=== PATIENT | female | born 1975 | race Caucasian/White ===

== ENCOUNTER 2020-01-24 20:26 | Emergency (ER) | payer SELFPAY ==
[~2020-01-24] VITALS: Ht 157 cm; Wt 117.9 kg
[~2020-01-24 20:26] MED LIST: PRD20T PO; PS30T PO
[2020-01-24] MEDS ORDERED: RX-ONDANSETRON 4 MG ODT (ZOFRAN) PPK #4 PO STA (21:21)
[2020-01-24] MEDS ORDERED: RX-MECLIZINE HCL (ANTIVERT) 25 MG TAB #4 PPK PO STA (21:21)
[2020-01-24] MEDS ORDERED: ONDA4TAB11 PO (21:25)
[2020-01-24] MEDS ORDERED: SCOP1PAT11 TD (21:25)
[2020-01-24] MEDS ORDERED: METH4TAB PO (21:25)
--- NOTE | 2020-01-24 21:26 | ED General ---
General Chief Complaint: Ear Problems Stated Complaint: L EAR PAIN/DIZZINESS Nursing Triage Note: Pt to RM 6 with c/o left ear pressure and dizziness that started today. Pt states she has a Hx of ear infections and these symptoms are similar with her past ear infections. Nursing Sepsis Screen: No Definite Risk Source of Information: Patient History of Present Illness Date Seen by Provider: Jan 24, 2020 Time Seen by Provider: 21:12 Initial Comments PT ARRIVES VIA POV FROM HOME STATES SHE HAS PAIN/PRESSURE IN HER LEFT EAR AND HAS BEEN DIZZY ALL DAY TODAY STATES SHE HAS HAD FEVER TODAY AND WAS UP TO 102.7 TONIGHT--HAS COME DOWN WITH TYLENOL--TOOK LAST DOSE PRIOR TO ARRIVAL + NAUSEA WITH THE DIZZINESS, NO VOMITING NO COUGH HAS BEEN HAVING PROBLEMS WITH "ALLERGIES" AND TAKES ZYRTEC. 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 BOTH START COLLEGE NEXT WEEK. ONE WORKS AT [employer] PT HAS BEEN AROUND HER FRIEND AND HER 4 MONTH OLD TWINS ALOT/HELPING TAKE CARE OF THEM--NONE OF THEM HAVE BEEN ILL LMP 2 WEEKS AGO. NORMAL. NO CONTROL PCP: [facility], CHERELLE KILPATRICK Allergies and Home Medications Allergies Coded Allergies: sulfamethoxazole (Verified Allergy, Unknown, 01/24/20) trimethoprim (Verified Allergy, Unknown, 01/24/20) Home Medications Methylprednisolone 4 Mg Tab.ds.pk, 4 MG PO UD PER DOSE PACK INSTRUCTIONS Prescribed by: NENA TAY on 01/24/202124 Ondansetron 4 Mg Tab.rapdis, 4 MG PO Q4H Prescribed by: NENA TAY on 01/24/202124 Prednisone 20 Mg Tab, 40 MG PO DAILY Prescribed by: ANT BYNUM on 06/23/131731 Pseudoephedrine Hcl 30 Mg Tab, 1 TAB PO TID Prescribed by: ANT BYNUM on 06/23/131731 Scopolamine 1 Each Patch.td72, 1 EACH TD Q72H Prescribed by: NENA TAY on 01/24/202124 Patient Home Medication List Home Medication List Reviewed: Yes Review of Systems Review of Systems Constitutional: see HPI, dizziness, fever, malaise EENTM: ear pain, nose congestion; No ear discharge, No hearing loss, No throat pain Respiratory: no symptoms reported; No cough, No short of breath, No wheezing Cardiovascular: no symptoms reported; No chest pain Gastrointestinal: see HPI; No abdominal pain, No diarrhea; nausea; No vomiting Genitourinary: no symptoms reported Musculoskeletal: no symptoms reported; No neck pain Skin: no symptoms reported Psychiatric/Neurological: No Symptoms Reported; Denies Headache, Denies Num bness, Denies Paresthesia, Denies Tingling, Denies Weakness Hematologic/Lymphatic: No Symptoms Reported Immunological/Allergic: no symptoms reported Past Wcptjbz-Nzmvfh-Fqlqvg Hx Past Med/Social Hx: Reviewed and Corrections made Patient Social History Alcohol Use: Denies Use Recreational Drug Use: No Smoking Status: Never a Smoker Recent Foreign Travel: No Contact w/Someone Who Travel: No Recent Infectious Disease Expo: No Recent Hopitalizations: No Seasonal Allergies Seasonal Allergies: Yes Past Medical History Surgeries: Yes ( X 2) Section, Gallbladder, Tonsillectomy Respiratory: No Cardiac: Yes Hypertension Neurological: No Reproductive Disorders: No Genitourinary: No Gastrointestinal: No Musculoskeletal: No Endocrine: Yes (NO MEDICATIONS FOR DIABETES) Diabetes, Non-Insulin dep HEENT: Yes (Hx ear infections) Tonsilitis Cancer: No Psychosocial: No Integumentary: No Blood Disorders: No Physical Exam Vital Signs Vital Signs - First Documented 01/24/20 20:46 Temp 36.7 Pulse 117 Resp 18 B/P (MAP) 142/92 (109) Pulse Ox 97 O2 Delivery Room Air Capillary Refill : Less Than 3 Seconds Height, Weight, BMI Height: '" Weight: 260lbs. oz. 117.270253qs; 47.00 BMI Method: General Appearance: No Apparent Distress, WD/WN, Obese HEENT: PERRL/EOMI, TMs Normal, Normal ENT Inspection, Pharynx Normal, Moist Mucous Membranes Neck: Full Range of Motion, Normal Inspection, Non Tender, Supple; No Carotid Bruit, No JVD Respiratory: Normal Breath Sounds, No Accessory Muscle Use, No Respiratory D istress Cardiovascular: No Edema, No JVD, No Murmur, Normal Peripheral Pulses, Tachycardia (120) Gastrointestinal: Non Tender, Soft Back: No CVA Tenderness Extremity: Normal Inspection Neurologic/Psychiatric: Alert, Oriented x3, No Motor/Sensory Deficits, Normal 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/Affect, 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 II-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 Norm as Tested; No Abnormal Cerebellar Tests, No Abnormal Gait Skin: Normal Color, Warm/Dry Progress/Results/Core Measures Suspected Sepsis Recent Fever Within 48 Hours: No Infection Criteria Present: None New/Unexplained Altered Menta: No Sepsis Screen: No Definite Risk SIRS Temperature: Pulse: 117 Respiratory Rate: 18 Blood Pressure 142 /92 Mean: 109 Results/Orders Lab Results Laboratory Tests Test 01/24/20 21:30 Range/Units My Orders Orders - NENA TAY DO Rx-Meclizine Hcl (Rx-Antivert) (01/24/20 21:21) Rx-Ondansetron Po (Rx-Zofran Po) (01/24/20 21:21) Coronavirus Sars-Cov-2 So 2018 (01/24/20 21:21) Scopolamine Patch (Transderm-Scop Patch) (01/24/20 21:30) Medications Given in ED Current Medications Medications Dose Ordered Sig/Shakira Route Start Time Stop Time Status Last Admin Dose Admin Scopolamine 1.5 mg ONCE ONCE TD 01/24/20 21:30 01/24/20 21:31 DC 01/24/20 21:44 1.5 MG Vital Signs/I&O 01/24/20 01/24/20 20:46 21:44 Temp 36.7 38.1 Pulse 117 115 Resp 18 18 B/P (MAP) 142/92 (109) 153/99 (109) Pulse Ox 97 97 O2 Delivery Room Air Room Air Capillary Refill : Less Than 3 Seconds Blood Pressure Mean: 109 Progress Note : Progress Note SOON PT REPORTED TO ME THAT SHE HAD BEEN HAVING FEVER UP TO 102.7 TODAY, PPE WAS IMMEDIATELY DONNED, AND COVID-19 TESTING WAS PERFORMED. PT ADVISED OF NEED FOR QUARANTINE FOR HERSELF AND ALL HOUSEHOLD MEMBERS AND ANY CLOSE CONTACTS, INCLUDING HER FRIEND AND TWIN [employer]S Departure Impression Primary Impression: COVID P.U.I. Additional Impressions: Left ear pain Dizziness Disposition: 01 HOME, SELF-CARE Condition: Stable Departure-Patient Inst. [facility] Primary Care Physician Patient Instructions: Coronavirus Disease 2019 (COVID-19) (DC), Dizziness, Nonvertigo, (DC), Vertigo (a Type of Dizziness) (DC) Add. Discharge Instructions: TYLENOL AND MOTRIN NEEDED FOR PAIN OR FEVER LOTS OF CLEAR LIQUIDS CONTINUE YOUR ALLERGY MEDICATION SLOW POSITION CHANGES LEAVE SCOPOLAMINE PATCH IN PLACE FOR 72 HOURS FOLLOW UP WITH YOUR DR IN 3-4 DAYS IF NO BETTER, RETURN TO ER IF WORSE QUARANTINE YOURSELF AND ALL HOUSEHOLD MEMBERS FOR THE NEXT 2 WEEKS--NO ONE ENTERS OR LEAVES YOUR HOME FOR THE NEXT 2 WEEKS All discharge instructions reviewed with patient and/or family. Voiced understanding. Scripts Ondansetron (Ondansetron Odt) 4 Mg Tab.rapdis 4 MG PO Q4H for Nausea/Vomiting, #10 TAB Prov: NENA TAY DO 01/24/20 Methylprednisolone (Medrol) 4 Mg Tab.ds.pk 4 MG PO UD for 6 Days, #21 PKG PER DOSE PACK INSTRUCTIONS Prov: NENA TAY DO 01/24/20 Scopolamine (Transderm-Scop) 1 Each Patch.td72 1 EACH TD Q72H, #3 PATCH Prov: ENNA TAY DO 01/24/20 Work/School Note: Work Release Form Date Seen in the Emergency Department: Jan 24, 2020 Return to Work: Feb 07, 2020 NENA TAY DO Jan 24, 2020 21:25
[2020-01-24] MEDS ORDERED: SCOPOLAMINE 1.5 MG (TRANSDERM-SCOP) PATCH TD ONE (21:30)
[2020-01-24 21:44] VITALS: BP 153/99
--- OUTSIDE RECORDS SUMMARY | 2020-01-25 00:03 | XMS REPORT ---
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 Name Role Phone [employer] Unavailable PROBLEMS Type Condition ICD9-CM Code PXM60-AT Code Onset Dates Condition S tatus SNOMED Code Problem Controlled type 2 diabetes m ellitus without complication, without long- term current use of insulin E11.9 Active 875409962 Problem Hypertension, benign I10 Active 39170113 ALLERGIES No Information ENCOUNTERS Encounter Location Date Diagnosis [facility] [address] [phone] October, [facility] [address] [place] [id number] [address] [place] [phone] Sep, [facility] [address] [place] [address] [id number] [address] [place] [address] Sep, Hypertension, benign I10 and Controlled type 2 diabetes mellitus without complication, without long-term current use of insulin E11.9 [facility] [address] [facility] [id number] [address] [place] [phone] 09 Sep, [address] [facility] [address] [facility] [id number] [address] [place] [phone] Feb, Flank pain R10.9 [facility] [address] [facility] [id number] [address] [place] [phone] May, [facility] [address] [facility] [id number] [address] [place] [phone] May, Controlled type 2 diabetes m priscila without complication, without long-term current use of insulin E11.9 [facility] [address] [facility] [id number] [address] [place] [phone] Apr, Controlled type 2 diabetes m ellitus without complication, without long-term current use of insulin E11.9 and Hypertension, benign I10 [facility] [address] [place] [id number] [place] [phone] Mar, Controlled type 2 diabetes m ellitus without complication, without long-term current use of insulin E11.9 and Acute pain of right knee M25.561 [facility] [address] [facility] [id number] [address] [place] [phone] Mar, [facility] [address] [id number] [address] [place] [phone] Feb, Controlled type 2 diabetes m ellitus without complication, without long-term current use of insulin E11.9 [place] [address] [place] [id number] [place] [address] Dec, Controlled type 2 diabetes m ellitus without complication, without long-term current use of insulin E11.9 and Hypertension, benign I10 [facility] [address] [facility] [id number] [address] [place] [phone] October, Controlled type 2 diabetes m ellitus without complication, without long-term current use of insulin E11.9 and Hypertension, benign I10 [facility] [address] [place] [id number] [address] [place] [phone] Sep, [facility] [id number] [place] [phone] Jul, Dental examination Z01.20 [facility] [address] [place] [id number] [address] [place] [phone] Jun, [facility] [address] [facility] [id number] [address] [place] [phone] May, Encounter for immunization Z 23 [facility] [id number] [place] [phone] Apr, [facility] [address] [id number] Jan, Dental examination Z01.20 [facility] [address] [id number] [address] [place] [id number] Jan, Dental examination Z01.20 [facility] [address] [facility] [id number] [address] [place] [phone] Aug, Controlled type 2 diabetes m priscila without complication, without long-term current use of insulin E11.9 [facility] [address] [facility] [id number] [address] [place] [phone] Feb, Uncontrolled diabetes [facility] type 2 without complications, unspecified residential insulin use status E11.65 [facility] [address] [facility] [id number] [address] [place] [phone] Feb, [facility] [address] [facility] [id number] [address] [place] [phone] Jan, [facility] [address] [place] [id number] [address] [place] [phone] Nov, Controlled type 2 diabetes m priscila without complication, without long-term current use of insulin E11.9 [facility] [address] [facility] [id number] [address] [place] [phone] October, Uncontrolled diabetes [facility] type 2 without complications, unspecified residential insulin use status E11.65 [facility] [address] [facility] [id number] [address] [place] [phone] October, Vision changes H53.9 ; Hyper tension, benign I10 ; Polyuria R35.8 and Polydipsia R63.1 [facility] [address] [facility] [id number] [address] [place] [phone] October, Vision changes H53.9 ; Dizzi ness R42 ; Polyuria R35.8 ; Polydipsia R63.1 and Hypertension, benign I10 [facility] [address] [facility] [id number] [address] [place] [phone] Sep, Rhinitis, allergic J30.9 ; O ME (otitis media with effusion), bilateral H65.93 ; Bilateral headaches R51 and Dizziness R42 [facility] [place] [facility] [address] [id number] [address] [place] [address], [place] [address] 31 May, 2015 Encounter for immunization Z 23 [facility] [address] [id number] [address] [place] [address], [place] [address] 14 Sep, 2014 [facility] [address] [id number] [address] [place] [address], [place] [address] Sep, [facility] [address] [id number] [address] [place] [address], [place] [address] Sep, [facility] [address] [id number] [address] [place] [address], [place] [address] Sep, [facility] [address] [id number] [address] [place] [address], [place] [address] Sep, [facility] [address] [id number] [address] [place] [address], [place] [address] Sep, [facility] [address] [id number] [address] [place] [address], [place] [address] Sep, [facility] [address] [id number] [address] [place] [address], [place] [address] Aug, [facility] [address] [id number] [address] [place] [address], [place] [address] Aug, [facility] [address] [id number] [address] [place] [address], [place] [address] Jan, [facility] [address] [id number] [address] [place] [address], [place] [address] Aug, [facility] [address] [id number] [address] [place] [address], [place] [address] Mar, [facility] [address] [id number] [address] [place] [address], [place] [address] Mar, [facility] [address] [id number] [address] [place] [address], [place] [address] Mar, [facility] [address] [id number] [address] [place] [phone] Feb, [facility] [address] [facility] [id number] [address] [place] [phone] Feb, IMMUNIZATIONS No Known Immunizations SOCIAL HISTORY Never Assessed REASON FOR VISIT PLAN OF CARE VITAL SIGNS Height 63 in 2013 Weight 265.5 lbs 2013 Temperature 101.4 degrees Fahrenheit 2013 Heart Rate 94 bpm 2013 Respiratory Rate 20 2013 Blood pressure systolic 140 mmHg 2013 Blood pressure diastolic 92 mmHg 2013 MEDICATIONS Unknown Medications RESULTS No Results PROCEDURES Procedure Date Ordered Result Body Site STREP A ASSAY W/OPTIC 2013 INSTRUCTIONS MEDICATIONS ADMINISTERED No Known Medications MEDICAL (GENERAL) HISTORY Type Description Date Medical History seasonal allergies Medical History Transient cerebral ischemia, unspecified type Surgical History cholecystectomy Surgical History tonsillectomy Surgical History x 2 Hospitalization History surgeries Hospitalization History menangitis in middle school Hospitalization History arm injury at 1 Hospitalization History scarlet fever as a child
--- OUTSIDE RECORDS SUMMARY | 2020-01-25 00:03 | XMS REPORT ---
Author Author Ene KILPATRICK Organization [facility] Address [address] [place] [address] Care Team Providers Care Slot Machine Key Person Name Role Phone BOSTON KILPATRICK Unavailable PROBLEMS Type Condition ICD9-CM Code GHE59-KT Code Onset Dates Condition S tatus SNOMED Code Problem Hypertension, benign I10 Active 71028084 Problem Controlled type 2 diabetes m ellitus without complication, without long- term current use of insulin E11.9 Active 231468937 ALLERGIES No Information ENCOUNTERS Encounter Location Date Diagnosis [place] [address] [place] [address] [id number] [place] [phone] Apr, [place] [address] [place] [id number] [address] [place] [address] Mar, Controlled type 2 diabetes m ellitus without complication, without long-term current use of insulin E11.9 and Acute pain of right knee M25.561 [place] [address] [place] [id number] [address] [place] [phone] Mar, [place] [address] [place] [id number] [address] [place] [address] Feb, Controlled type 2 diabetes m ellitus without complication, without long-term current use of insulin E11.9 [place] [address] [facility] [id number] [address] [place] [phone] Dec, Controlled type 2 diabetes m ellitus without complication, without long-term current use of insulin E11.9 and Hypertension, benign I10 [place] [address] [facility] [id number] [address] [place] [phone] October, Controlled type 2 diabetes m ellitus without complication, without long-term current use of insulin E11.9 and Hypertension, benign I10 [place] [address] [facility] [id number] [address] [place] [address] Sep, [facility] [address] [id number] [address] [place] [id number] Jul, Dental examination Z01.20 [facility] [address] [id number] [address] [place] [phone] Jun, [facility] [address] [id number] [address] [place] [phone] May, Encounter for immunization Z 23 [facility] [address] [id number] [address] [place] [id number] Apr, [facility] [address] [id number] [address] [place] [address] [id number] Jan, Dental examination Z01.20 [facility] [address] [id number] [address] [place] [phone] Jan, Dental examination Z01.20 [facility] [address] [id number] [address] [place] [phone] Aug, Controlled type 2 diabetes m ellitus without complication, without long-term current use of insulin E11.9 [facility] [address] [id number] [address] [place] [address] Feb, Uncontrolled diabetes [facility] type 2 without complications, unspecified group home insulin use status E11.65 [facility] [address] [facility] [id number] [address] [place] [phone] Feb, [facility] [address] [id number] [address] [place] [address] Jan, [facility] [address] [id number] [address] [place] [phone] Nov, Controlled type 2 diabetes m ellitus without complication, without long-term current use of insulin E11.9 [facility] [address] [id number] [address] [place] [address] October, Uncontrolled diabetes [facility] type 2 without complications, unspecified group home insulin use status E11.65 [facility] [address] [facility] [id number] [address] [place] [phone] October, Vision changes H53.9 ; Hyper tension, benign I10 ; Polyuria R35.8 and Polydipsia R63.1 [facility] [address] [facility] [id number] [address] [place] [address] October, Vision changes H53.9 ; Dizzi ness R42 ; Polyuria R35.8 ; Polydipsia R63.1 and Hypertension, benign I10 [facility] [address] [facility] [id number] [address] [place] [address] Sep, Rhinitis, allergic J30.9 ; O ME (otitis media with effusion), bilateral H65.93 ; Bilateral headaches R51 and Dizziness R42 [facility] [address] [place] [id number] [address] [place] [phone] May, Encounter for immunization Z 23 [facility] [address] [phone] Sep, [facility] [address] [phone] Sep, [facility] [address] [place] [address] [id number] [address] [place] [phone] Sep, [facility] [address] [place] [id number] [address] [place] [phone] Sep, [facility] [address] [place] [id number] [address] [place] [phone] Sep, [facility] [address] [place] [id number] [address] [place] [phone] Sep, [facility] [address] [place] [id number] [address] [place] [phone] Sep, [facility] [address] [place] [address] [id number] [address] [place] [phone] Aug, [facility] [address] [place] [id number] [place] [address] 28 Aug, 2013 [facility] [address] [id number] [address] [place] [phone] Jan, [facility] [address] [id number] [address] [place] [phone] Aug, [facility] [address] [id number] [address] [place] [phone] Mar, [facility] [address] [id number] [address] [place] [phone] Mar, [facility] [address] [id number] [address] [place] [phone] Mar, [facility] [address] [id number] [address] [place] [phone] Feb, [facility] [address] [facility] [id number] [address] [place] [phone] Feb, IMMUNIZATIONS No Known Immunizations SOCIAL HISTORY Never Assessed REASON FOR VISIT Medication refill request PLAN OF CARE VITAL SIGNS MEDICATIONS Medication Instructions Dosage Frequency Start Date End Date Duration S tatus Lisinopril 20 mg TAKE ONE TABLET BY MOUTH ONCE DAILY 90 Active RESULTS No Results PROCEDURES No Known procedures INSTRUCTIONS MEDICATIONS ADMINISTERED No Known Medications MEDICAL (GENERAL) HISTORY Type Description Date Medical History seasonal allergies Medical History Transient cerebral ischemia, unspecified type Surgical History cholecystectomy Surgical History tonsillectomy Surgical History x 2 Hospitalization History surgeries Hospitalization History menangitis in middle school Hospitalization History arm injury at 1 Hospitalization History scarlet fever as a child
--- OUTSIDE RECORDS SUMMARY | 2020-01-25 00:03 | XMS REPORT ---
Author Author Ene KILPATRICK Organization [facility] Address [address] [place] [address] Care Team Providers Care Cloth Colors Examiner Name Role Phone BOSTON KILPATRICK Unavailable PROBLEMS Type Condition ICD9-CM Code RSZ33-ST Code Onset Dates Condition S tatus SNOMED Code Problem Hypertension, benign I10 Active 19950339 Problem Controlled type 2 diabetes m ellitus without complication, without long- term current use of insulin E11.9 Active [id number] ALLERGIES Substance Reaction Event Type Date Status Sulfamethoxazole-Trimethoprim Unknown Drug Allergy Feb, 8 Active Amoxicillin hives Drug Allergy Feb, Active Codeine Unknown Drug Allergy Feb, Active Bactrim anaphylaxis Non Drug Allergy Feb, Active Pineapple and Eggplant Unknown Non Drug Allergy Feb, A ctive Blue 1 dye swelling tongue and face Non Drug Allergy Feb, Active ENCOUNTERS Encounter Location Date Diagnosis [place] [address] [address] Mar, [place] [address] [address] Feb, Controlled type 2 diabetes m ellitus without complication, without long-term current use of insulin E11.9 [place] [address] [place] [id number] [address] [place] [phone] Dec, Controlled type 2 diabetes m ellitus without complication, without long-term current use of insulin E11.9 and Hypertension, benign I10 [place] [address] [place] [id number] [address] [place] [phone] October, Controlled type 2 diabetes m ellitus without complication, without long-term current use of insulin E11.9 and Hypertension, benign I10 [place] [address] [place] [id number] [address] [place] [address] Sep, [facility] [address] [id number] [address] [place] [phone] Jul, Dental examination Z01.20 [facility] [address] [id number] [address] [place] [phone] Jun, [facility] [address] [id number] [address] [place] [phone] May, Encounter for immunization Z 23 [facility] [address] [id number] [address] [place] [address] [phone] Apr, [facility] [address] [id number] [address] [place] [address] [phone] Jan, Dental examination Z01.20 [facility] [address] [id number] [address] [place] [address] [id number] Jan, Dental examination Z01.20 [facility] [address] [id number] [address] [place] [phone] Aug, Controlled type 2 diabetes m ellitus without complication, without long-term current use of insulin E11.9 [facility] [address] [id number] [address] [place] [phone] Feb, Uncontrolled diabetes mellit type 2 without complications, 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 [facility] [address] [id number] [address] [place] [phone] Feb, [facility] [address] [id number] [address] [place] [phone] Jan, [facility] [address] [id number] [address] [place] [phone] Nov, Controlled type 2 diabetes m ellitus without complication, without long-term current use of insulin E11.9 [facility] [address] [id number] [address] [place] [phone] October, Uncontrolled diabetes mellit [place] type 2 without complications, unspecified alf insulin use status E11.65 [facility] [address] [address] October, Vision changes H53.9 ; Hyper tension, benign I10 ; Polyuria R35.8 and Polydipsia R63.1 [facility] [address] [address] October, Vision changes H53.9 ; Dizzi ness R42 ; Polyuria R35.8 ; Polydipsia R63.1 and Hypertension, benign I10 [facility] [address] [address] Sep, Rhinitis, allergic J30.9 ; O ME (otitis media with effusion), bilateral H65.93 ; Bilateral headaches R51 and Dizziness R42 [facility] [address] [address] May, Encounter for immunization Z 23 [facility] [address] [phone] 14 Sep, 2014 [facility] [address] [address] Sep, [facility] [address] [id number] Sep, [facility] [address] [address] Sep, [facility] [address] [address] Sep, [facility] [address] [address] Sep, [facility] [address] [address] Sep, [facility] [address] [address] Aug, [facility] [address] [address] Aug, [facility] [address] [id number] [address] [place] [phone] Jan, [facility] [address] [id number] [address] [place] [phone] Aug, [facility] [address] [id number] [address] [place] [phone] Mar, [facility] [address] [id number] [address] [place] [phone] Mar, [facility] [address] [id number] [address] [place] [phone] Mar, [facility] [address] [id number] [address] [place] [phone] Feb, [facility] [address] [id number] [address] [place] [phone] Feb, IMMUNIZATIONS No Known Immunizations SOCIAL HISTORY Never Assessed REASON FOR VISIT Diabetes follow up. ALEX Lim PLAN OF CARE Activity Details Follow Up 4 Weeks Reason:dm2 uncontrol led. VITAL SIGNS Height 63 in 2018-02-27 Weight 260 lbs 2018-02-27 Temperature 98.1 degrees Fahrenheit 2018-02-27 Heart Rate 71 bpm 2018-02-27 Respiratory Rate 18 2018-02-27 BMI 46.05 kg/m2 2018-02-27 Blood pressure systolic 124 mmHg 2018-02-27 Blood pressure diastolic 78 mmHg 2018-02-27 MEDICATIONS Medication Instructions Dosage Frequency Start Date End Date Duration S tatus cetirizine 10 mg take 1 tablet (10 mg) by oral route o nce daily Jan, Active Lisinopril 20 MG TAKE ONE TABLET BY MOUTH ONCE DAILY 90 Active Chlorzoxazone 500 MG TAKE ONE TABLET BY MOUTH TWICE DAILY Dec, 30 Active Naproxen 500 MG Orally every 12 hrs 1 tablet as needed 12h 30 Active Parafon Forte DSC Active RESULTS Name Result Date Reference Range A1C (IN HOUSE) 2018-02-27 A1C IN HOUSE 6.5 4.3 - 5.6 % Previous A1c 6.2 Lot [id number] Exp date 08/2019 PROCEDURES Procedure Date Ordered Result Body Site GLYCATED HEMOGLOBIN TEST Feb 27, 2018 INSTRUCTIONS MEDICATIONS ADMINISTERED No Known Medications MEDICAL (GENERAL) HISTORY Type Description Date Medical History seasonal allergies Medical History Transient cerebral ischemia, unspecified type Surgical History cholecystectomy Surgical History tonsillectomy Surgical History x 2 Hospitalization History surgeries Hospitalization History menangitis in middle school Hospitalization History arm injury at 1 Hospitalization History scarlet fever as a child
--- OUTSIDE RECORDS SUMMARY | 2020-01-25 00:03 | XMS REPORT ---
Author Author Ene Caldera Doctor Organization [facility] Address Unknown Phone Unavailable Care Team Providers Care Shoe Turner Name Role Phone Migration, Doctor Unavailable Unavailable PROBLEMS Type Condition ICD9-CM Code AWK70-JE Code Onset Dates Condition S tatus SNOMED Code Problem Controlled type 2 diabetes m ellitus without complication, without long- term current use of insulin E11.9 Active 538804951 Problem Hypertension, benign I10 Active 15763409 ALLERGIES No Information ENCOUNTERS Encounter Location Date Diagnosis [place] [address] [place] [id number] [address] [place] [phone] May, [place] [address] [place] [id number] [address] [place] [phone] May, Controlled type 2 diabetes m ellitus without complication, without long-term current use of insulin E11.9 [place] [address] [place] [id number] [address] [place] [phone] Apr, Controlled type 2 diabetes m ellitus without complication, without long-term current use of insulin E11.9 and Hypertension, benign I10 [place] [address] [address] [facility] [id number] [address] [place] [address] Mar, Controlled type 2 diabetes m ellitus without complication, without long-term current use of insulin E11.9 and Acute pain of right knee M25.561 [place] [address] [address] [facility] [id number] [address] [place] [phone] Mar, [place] [address] [address] [place] [id number] [address] [place] [address] Feb, Controlled type 2 diabetes m ellitus without complication, without long-term current use of insulin E11.9 [place] [address] [address] [facility] [id number] [address] [place] [phone] Dec, Controlled type 2 diabetes m ellitus without complication, without long-term current use of insulin E11.9 and Hypertension, benign I10 [facility] [address] [id number] [address] [place] [phone] October, Controlled type 2 diabetes m stephanieitus without complication, without long-term current use of insulin E11.9 and Hypertension, benign I10 [facility] [address] [id number] [address] [place] [address] Sep, [facility] [address] [id number] [address] [place] [address] [phone] Jul, Dental examination Z01.20 [facility] [address] [id number] [address] [place] [phone] Jun, [facility] [address] [id number] [address] [place] [phone] May, Encounter for immunization Z 23 [facility] [address] [id number] [address] [place] [address] [id number] Apr, [facility] [address] [id number] [address] [place] [address] [phone] Jan, Dental examination Z01.20 [facility] [address] [id number] [address] [place] [address] [phone] Jan, Dental examination Z01.20 [facility] [address] [id number] [address] [place] [phone] Aug, Controlled type 2 diabetes m pricsila without complication, without long-term current use of insulin E11.9 [facility] [address] [id number] [address] [place] [phone] Feb, Uncontrolled diabetes [facility] type 2 without complications, 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 [facility] [address] [id number] [address] [place] [address] Feb, [facility] [address] [id number] [address] [place] [phone] Jan, [facility] [address] [address] Nov, Controlled type 2 diabetes melva francois without complication, without long-term current use of insulin E11.9 [facility] [address] [address] October, Uncontrolled diabetes mellit type 2 without complications, unspecified correction insulin use status E11.65 [place] [address] [address] October, Vision changes H53.9 ; Hyper tension, benign I10 ; Polyuria R35.8 and Polydipsia R63.1 [place] [address] [address] October, Vision changes H53.9 ; Dizzi ness R42 ; Polyuria R35.8 ; Polydipsia R63.1 and Hypertension, benign I10 [facility] [address] [address] Sep, Rhinitis, allergic J30.9 ; O ME (otitis media with effusion), bilateral H65.93 ; Bilateral headaches R51 and Dizziness R42 [place] [address] [address] May, Encounter for immunization Z 23 [place] [address] [address] 14 Sep, 2014 [place] [address] [address] Sep, [facility] [address] [address] Sep, [facility] [address] [address] Sep, [facility] [address] [address] Sep, [place] [address] [address] Sep, [facility] [address] [id number] [address] [place] [phone] Sep, [facility] [address] [id number] [address] [place] [phone] Aug, [facility] [address] [id number] [address] [place] [phone] Aug, [facility] [address] [id number] [address] [place] [phone] Jan, [facility] [address] [id number] [address] [place] [phone] Aug, [facility] [address] [id number] [address] [place] [phone] Mar, [facility] [address] [id number] [address] [place] [phone] Mar, [facility] [address] [id number] [address] [place] [phone] Mar, [facility] [address] [id number] [address] [place] [phone] Feb, [facility] [address] [id number] [address] [place] [phone] Feb, IMMUNIZATIONS No Known Immunizations SOCIAL HISTORY Never Assessed REASON FOR VISIT [facility] PLAN OF CARE VITAL SIGNS MEDICATIONS Unknown Medications RESULTS No Results PROCEDURES No Known procedures [...]
--- OUTSIDE RECORDS SUMMARY | 2020-01-25 00:03 | XMS REPORT ---
Author Author Ene KILPATRICK Organization [facility] Address [address] [place] [address] Care Team Providers Care Coronary Clinical Specialist Name Role Phone BOSTON KILPATRICK Unavailable PROBLEMS Type Condition ICD9-CM Code PWW60-AE Code Onset Dates Condition S tatus SNOMED Code Problem Hypertension, benign I10 Active 86168511 Problem Controlled type 2 diabetes m ellitus without complication, without long- term current use of insulin E11.9 Active 868359034 ALLERGIES No Information ENCOUNTERS Encounter Location Date Diagnosis [place] [address] [address] May, [place] [address] [place] [id number] [address] [place] [phone] May, Controlled type 2 diabetes m ellitus without complication, without long-term current use of insulin E11.9 [place] [address] [place] [id number] [address] [place] [phone] Apr, Controlled type 2 diabetes m ellitus without complication, without long-term current use of insulin E11.9 and Hypertension, benign I10 [place] [address] [place] [id number] [address] [place] [phone] Mar, Controlled type 2 diabetes m ellitus without complication, without long-term current use of insulin E11.9 and Acute pain of right knee M25.561 [place] [address] [place] [id number] [address] [place] [phone] Mar, [place] [address] [address] [place] [id number] [address] [place] [phone] Feb, Controlled type 2 diabetes m ellitus without complication, without long-term current use of insulin E11.9 [place] [address] [place] [id number] [address] [place] [phone] Dec, Controlled type 2 diabetes m ellitus without complication, without long-term current use of insulin E11.9 and Hypertension, benign I10 [facility] [address] [id number] [address] [place] [phone] October, Controlled type 2 diabetes m ellitus without complication, without long-term current use of insulin E11.9 and Hypertension, benign I10 [facility] [address] [id number] [address] [place] [phone] Sep, [facility] [address] [id number] [address] [place] [address] [id number] Jul, Dental examination Z01.20 [facility] [address] [id number] [address] [place] [phone] Jun, [facility] [address] [id number] [address] [place] [phone] May, Encounter for immunization Z 23 [facility] [address] [id number] [address] [place] [address] [id number] Apr, [facility] [id number] [place] [address] [phone] Jan, Dental examination Z01.20 [facility] [address] [id number] [address] [place] [address] [id number] Jan, Dental examination Z01.20 [facility] [address] [id number] [address] [place] [phone] Aug, Controlled type 2 diabetes m ellitus without complication, without long-term current use of insulin E11.9 [facility] [address] [id number] [address] [place] [phone] 16 Feb, 2016 Uncontrolled diabetes [facility] type 2 without complications, unspecified longterm insulin use status E11.65 [facility] [address] [id number] [address] [place] [phone] Feb, [facility] [address] [facility] [id number] [address] [place] [phone] Jan, [facility] [address] [address] Nov, Controlled type 2 diabetes melva francois without complication, without long-term current use of insulin E11.9 [facility] [address] [address] October, Uncontrolled diabetes mellit type 2 without complications, 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 [place] [id number] [address] October, Vision changes H53.9 ; Hyper tension, benign I10 ; Polyuria R35.8 and Polydipsia R63.1 [place] [address] [address] October, Vision changes H53.9 ; Dizzi ness R42 ; Polyuria R35.8 ; Polydipsia R63.1 and Hypertension, benign I10 [facility] [address] [address] Sep, Rhinitis, allergic J30.9 ; O ME (otitis media with effusion), bilateral H65.93 ; Bilateral headaches R51 and Dizziness R42 [place] [address] [address] May, Encounter for immunization Z 23 [place] [address] [address] Sep, [place] [address] [address] Sep, [place] [address] [address] Sep, [facility] [address] [address] Sep, [place] [address] [address] Sep, [facility] [address] [id number] [address] [place] [phone] Sep, [facility] [address] [id number] [address] [place] [phone] Sep, [facility] [address] [id number] [address] [place] [phone] Aug, [facility] [address] [id number] [address] [place] [phone] Aug, [facility] [address] [id number] [address] [place] [phone] Jan, [facility] [address] [id number] [address] [place] [phone] Aug, [facility] [address] [id number] [address] [place] [phone] Mar, [facility] [address] [id number] [address] [place] [phone] Mar, [facility] [address] [id number] [address] [place] [phone] Mar, [facility] [address] [id number] [address] [place] [phone] Feb, [facility] [address] [id number] [address] [place] [phone] Feb, IMMUNIZATIONS No Known Immunizations SOCIAL HISTORY Never Assessed REASON FOR VISIT refill request PLAN OF CARE VITAL SIGNS MEDICATIONS Medication Instructions Dosage Frequency Start Date End Date Duration S tatus Accu-Chek SmartView - test blood sugar 24h May, 50 days Active RESULTS No Results PROCEDURES No Known [...]
--- OUTSIDE RECORDS SUMMARY | 2020-01-25 00:03 | XMS REPORT ---
Author Author Ene Caldera Doctor Organization [facility] Address Unknown Phone Unavailable Care Team Providers Care Senior Radiation Therapist Name Role Phone Migration, Doctor Unavailable Unavailable PROBLEMS Type Condition ICD9-CM Code WCS10-PY Code Onset Dates Condition S tatus SNOMED Code Problem Controlled type 2 diabetes m ellitus without complication, without long- term current use of insulin E11.9 Active 802362048 Problem Hypertension, benign I10 Active 35442366 ALLERGIES No Information ENCOUNTERS Encounter Location Date Diagnosis [facility] [address] [facility] [id number] [address] [place] [address] Feb, Flank pain R10.9 [place] [address] [address] May, [place] [address] [address] May, Controlled type 2 diabetes mellitus with out complication, without long-term current use of insulin E11.9 [place] [address] [address] Apr, Controlled type 2 diabetes mellitus with out complication, without long-term current use of insulin E11.9 and Hypertension, benign I10 [facility] [address] [address] Mar, Controlled type 2 diabetes mellitus with out complication, without long-term current use of insulin E11.9 and Acute pain of right knee M25.561 [place] [address] [address] Mar, [place] [address] [address] Feb, Controlled type 2 diabetes mellitus with out complication, without long-term current use of insulin E11.9 [place] [address] [address] Dec, Controlled type 2 diabetes mellitus with out complication, without long-term current use of insulin E11.9 and Hypertension, benign I10 [place] [address] [address] October, Controlled type 2 diabetes mellitus with out complication, without long-term current use of insulin E11.9 and Hypertension, benign I10 [place] [address] [address] Sep, [facility] [address] [id number] Jul, Dental examination Z01.20 [place] [address] [address] Jun, [place] [address] [address] May, Encounter for immunization Z23 [facility] [address] [id number] Apr, [facility] [address] [id number] Jan, Dental examination Z01.20 [facility] [address] [id number] Jan, Dental examination Z01.20 [place] [address] [address] Aug, Controlled type 2 diabetes mellitus with out complication, without long-term current use of insulin E11.9 [place] [address] [address] Feb, Uncontrolled diabetes mellitus type 2 wi thout complications, unspecified alf insulin use status E11.65 [place] [address] [address] Feb, [place] [address] [address] Jan, [place] [address] [address] Nov, Controlled type 2 diabetes mellitus with out complication, without long-term current use of insulin E11.9 [facility] [address] [address] October, Uncontrolled diabetes mellitus type 2 wi thout complications, 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 [place] [address] [address] October, Vision changes H53.9 ; Hypertension, gato ign I10 ; Polyuria R35.8 and Polydipsia R63.1 [facility] [address] [address] October, Vision changes H53.9 ; Dizziness R42 ; P olyuria R35.8 ; Polydipsia R63.1 and Hypertension, benign I10 [facility] [address] [facility] [id number] [address] [place] [address] Sep, Rhinitis, allergic J30.9 ; O ME (otitis media with effusion), bilateral H65.93 ; Bilateral headaches R51 and Dizziness R42 [place] [address] [address] May, Encounter for immunization Z23 [place] [address] [address] Sep, [place] [address] [address] Sep, [facility] [address] [address] Sep, [facility] [address] [address] Sep, [place] [address] [address] Sep, [place] [address] [address] Sep, [place] [address] [address] Sep, [facility] [address] [id number] [place] [address] Aug, [facility] [address] [id number] [place] [address] Aug, [facility] [address] [id number] [place] [address] Jan, [facility] [address] [place] [id number] [place] [address] Aug, [facility] [address] [id number] [place] [address] Mar, [facility] [address] [place] [id number] [place] [address] Mar, [facility] [address] [id number] [place] [address] Mar, [facility] [address] [id number] [place] [address] Feb, [facility] [address] [id number] [place] [address] Feb, IMMUNIZATIONS No Known Immunizations SOCIAL HISTORY Never Assessed REASON FOR VISIT PLAN OF CARE VITAL SIGNS Height 63 in 2013-09-17 Weight 275.6 lbs 2013-09-17 Temperature 102 degrees Fahrenheit 2013-09-17 Heart Rate 102 bpm 2013-09-17 Respiratory Rate 24 2013-09-17 Blood pressure systolic 142 mmHg 2013-09-17 Blood pressure diastolic 88 mmHg 2013-09-17 MEDICATIONS No Known Medications RESULTS No Results PROCEDURES No Known [...]
--- OUTSIDE RECORDS SUMMARY | 2020-01-25 00:03 | XMS REPORT ---
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 Name Role Phone Migration, Doctor Unavailable Unavailable PROBLEMS Type Condition ICD9-CM Code XRT06-JR Code Onset Dates Condition S tatus SNOMED Code Problem Controlled type 2 diabetes m ellitus without complication, without long- term current use of insulin E11.9 Active 069006971 Problem Hypertension, benign I10 Active 62840081 ALLERGIES Substance Reaction Event Type Date Status Bactrim Unknown Drug Allergy Sep, Active Codeine Unknown Drug Allergy Sep, Active ENCOUNTERS Encounter Location Date Diagnosis [place] [address] [place] [id number] [place] [address] May, [place] [address] [address] [place] [id number] [place] [address] May, Controlled type 2 diabetes m ellitus without complication, without long-term current use of insulin E11.9 [place] [address] [place] [id number] [place] [address] Apr, Controlled type 2 diabetes m ellitus without complication, without long-term current use of insulin E11.9 and Hypertension, benign I10 [place] [address] [place] [address] Mar, Controlled type 2 diabetes m ellitus without complication, without long-term current use of insulin E11.9 and Acute pain of right knee M25.561 [place] [address] [place] [id number] [place] [address] Mar, [place] [address] [address] [place] [id number] [address] [place] [address] Feb, Controlled type 2 diabetes m ellitus without complication, without long-term current use of insulin E11.9 [place] [address] [place] [id number] [address] [place] [address] Dec, Controlled type 2 diabetes m ellitus without complication, without long-term current use of insulin E11.9 and Hypertension, benign I10 [facility] [address] [id number] [address] [place] [address] October, Controlled type 2 diabetes m ellitus without complication, without long-term current use of insulin E11.9 and Hypertension, benign I10 [facility] [address] [id number] [address] [place] [address] Sep, [facility] [id number] [place] [id number] Jul, Dental examination Z01.20 [facility] [address] [place] [id number] [address] [place] [address] Jun, [facility] [address] [id number] [address] [place] [address] May, Encounter for immunization Z 23 [facility] [address] [id number] [place] [id number] Apr, [facility] [address] [place] [id number] [place] [id number] Jan, Dental examination Z01.20 [facility] [address] [facility] [id number] [place] [id number] Jan, Dental examination Z01.20 [facility] [address] [id number] [address] [place] [address] Aug, Controlled type 2 diabetes m stephanieitus without complication, without long-term current use of insulin E11.9 [facility] [address] [id number] [address] [place] [address] 16 Feb, 2016 Uncontrolled diabetes [facility] type 2 without complications, unspecified mcfp insulin use status E11.65 [facility] [address] [id number] [address] [place] [address] Feb, [facility] [address] [facility] [id number] [address] [place] [address] Jan, [facility] [address] [address] Nov, Controlled type 2 diabetes melva francois without complication, without long-term current use of insulin E11.9 [facility] [address] [address] October, Uncontrolled diabetes mellguillermina type 2 without complications, unspecified mcfp insulin use status E11.65 [facility] [address] [address] October, Vision changes H53.9 ; Hyper tension, benign I10 ; Polyuria R35.8 and Polydipsia R63.1 [place] [address] [address] October, Vision changes H53.9 ; Dizzi ness R42 ; Polyuria R35.8 ; Polydipsia R63.1 and Hypertension, benign I10 [facility] [address] [address] Sep, Rhinitis, allergic J30.9 ; O ME (otitis media with effusion), bilateral H65.93 ; Bilateral headaches R51 and Dizziness R42 [place] [address] [address] May, Encounter for immunization Z 23 [place] [address] [address] 14 Sep, 2014 [place] [address] [address] Sep, [facility] [address] [address] Sep, [facility] [address] [address] Sep, [facility] [address] [address] Sep, [facility] [address] [id number] [address] [place] [address] Sep, [facility] [address] [id number] [address] [place] [address] Sep, [facility] [address] [id number] [address] [place] [address] Aug, [facility] [address] [id number] [address] [place] [phone] Aug, [facility] [address] [id number] [address] [place] [address] Jan, [facility] [address] [id number] [address] [place] [address] Aug, [facility] [address] [id number] [address] [place] [address] Mar, [facility] [address] [id number] [address] [place] [address] Mar, [facility] [address] [id number] [address] [place] [address] Mar, [facility] [address] [id number] [address] [place] [address] Feb, [facility] [address] [id number] [address] [place] [address] Feb, IMMUNIZATIONS No Known Immunizations SOCIAL HISTORY Never Assessed REASON FOR VISIT [facility] PLAN OF CARE VITAL SIGNS MEDICATIONS Medication Instructions Dosage Frequency Start Date End Date Duration S tatus Meloxicam by Oral route Feb, Act richard PredniSONE 10 mg 1 Tablet 1 time per day for 5 days 28 2013 Active Amoxicillin 500 mg 2 capsule by Oral route 2 times per day for 10 day(s) Aug, Active fluticasone 50 mcg/actuation 1 sprays by Nasal route 2 times per day 1 spray in each nostril Aug, Active Doxycycline Hyclate 100 mg [address] Oral rout e 2 times per day for 10 days Mar, Active cetirizine 10 mg take 1 tablet (10 mg) by oral route o nce daily Jan, Active RESULTS No Results PROCEDURES No Known [...]
--- OUTSIDE RECORDS SUMMARY | 2020-01-25 00:03 | XMS REPORT ---
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 Helper Name Role Phone BOSTON KILPATRICK Unavailable PROBLEMS Type Condition ICD9-CM Code YFR03-RC Code Onset Dates Condition S tatus SNOMED Code Problem Hypertension, benign I10 Active 18001154 Problem Controlled type 2 diabetes m ellitus without complication, without long- term current use of insulin E11.9 Active 942615714 ALLERGIES Substance Reaction Event Type Date Status Sulfamethoxazole-Trimethoprim Unknown Drug Allergy Apr, 8 Active Amoxicillin hives Drug Allergy Apr, Active Codeine Unknown Drug Allergy Apr, Active Bactrim anaphylaxis Non Drug Allergy Apr, Active Pineapple and Eggplant Unknown Non Drug Allergy Apr, A ctive Blue 1 dye swelling tongue and face Non Drug Allergy Apr, Active ENCOUNTERS Encounter Location Date Diagnosis [place] [address] [address] May, [place] [address] [address] [place] [id number] [address] [place] [address] Apr, Controlled type 2 diabetes m ellitus without complication, without long-term current use of insulin E11.9 and Hypertension, benign I10 [place] [address] [address] [place] [id number] [address] [place] [address] Mar, Controlled type 2 diabetes m ellitus without complication, without long-term current use of insulin E11.9 and Acute pain of right knee M25.561 [place] [address] [address] [place] [id number] [address] [place] [address] Mar, [place] [address] [address] [place] [id number] [address] [place] [phone] Feb, Controlled type 2 diabetes m ellitus without complication, without long-term current use of insulin E11.9 [facility] [address] [id number] [address] [place] [address] Dec, Controlled type 2 diabetes m ellitus without complication, without long-term current use of insulin E11.9 and Hypertension, benign I10 [facility] [address] [id number] [address] [place] [address] October, Controlled type 2 diabetes m ellitus without complication, without long-term current use of insulin E11.9 and Hypertension, benign I10 [facility] [address] [id number] [address] [place] [address] Sep, [facility] [address] [id number] [place] [id number] Jul, Dental examination Z01.20 [facility] [address] [id number] [address] [place] [address] Jun, [facility] [address] [id number] [address] [place] [address] May, Encounter for immunization Z 23 [facility] [address] [id number] [address] [place] [id number] Apr, [facility] [address] [id number] [address] [place] [id number] Jan, Dental examination Z01.20 [facility] [address] [id number] [address] [place] [id number] Jan, Dental examination Z01.20 [facility] [address] [id number] [address] [place] [address] Aug, Controlled type 2 diabetes m ellitus without complication, without long-term current use of insulin E11.9 [facility] [address] [id number] [address] [place] [address] Feb, Uncontrolled diabetes [facility] type 2 without complications, unspecified intermediate insulin use status E11.65 [facility] [address] [id number] [address] [place] [address] Feb, [facility] [address] [address] Jan, [facility] [address] [address] Nov, Controlled type 2 diabetes melva francois without complication, without long-term current use of insulin E11.9 [facility] [address] [address] October, Uncontrolled diabetes mellit type 2 without complications, 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 [place] [address] [address] October, Vision changes H53.9 ; Hyper tension, benign I10 ; Polyuria R35.8 and Polydipsia R63.1 [place] [address] [address] October, Vision changes H53.9 ; Dizzi ness R42 ; Polyuria R35.8 ; Polydipsia R63.1 and Hypertension, benign I10 [facility] [address] [address] Sep, Rhinitis, allergic J30.9 ; O ME (otitis media with effusion), bilateral H65.93 ; Bilateral headaches R51 and Dizziness R42 [facility] [address] [address] May, Encounter for immunization Z 23 [facility] [address] [address] Sep, [place] [address] [address] Sep, [facility] [address] [address] Sep, [facility] [address] [address] Sep, [facility] [address] [id number] [address] [place] [address] Sep, [facility] [address] [id number] [address] [place] [address] Sep, [facility] [address] [id number] [address] [place] [address] Sep, [facility] [address] [id number] [address] [place] [address] Aug, [facility] [address] [id number] [address] [place] [address] Aug, [facility] [address] [id number] [address] [place] [address] Jan, [facility] [address] [id number] [address] [place] [phone] Aug, [facility] [address] [id number] [address] [place] [address] Mar, [facility] [address] [id number] [address] [place] [address] Mar, [facility] [address] [id number] [address] [place] [address] Mar, [facility] [address] [id number] [address] [place] [address] Feb, [facility] [address] [id number] [address] [place] [phone] Feb, IMMUNIZATIONS No Known Immunizations SOCIAL HISTORY Never Assessed REASON FOR VISIT Pt is here for blood work -[facility] PLAN OF CARE Activity Details Follow Up 4 Weeks Reason:dm2 uncontrol led VITAL SIGNS Height 63 in 2018-04-27 Weight 260.0 lbs 2018-04-27 Temperature 98.0 degrees Fahrenheit 2018-04-27 Heart Rate 78 bpm 2018-04-27 Respiratory Rate 20 2018-04-27 Oximetry 98 % 2018-04-27 BMI 46.05 kg/m2 2018-04-27 Blood pressure systolic 122 mmHg 2018-04-27 Blood pressure diastolic 76 mmHg 2018-04-27 MEDICATIONS Medication Instructions Dosage Frequency Start Date End Date Duration S pebbles cetirizine 10 mg take 1 tablet (10 mg) by oral route o nce daily Jan, Active Chlorzoxazone 500 MG TAKE ONE TABLET BY MOUTH TWICE DAILY 30 Active Parafon Forte DSC Active Lisinopril 20 mg TAKE ONE TABLET BY MOUTH ONCE DAILY 90 Active Naproxen 500 MG Orally every 12 hrs 1 tablet as needed 12h 30 Active Blood Glucose Test Strip Test Strips test blood sugar with Accu Chek [place] 24h Mar, Active RESULTS No Results PROCEDURES No Known [...]
--- OUTSIDE RECORDS SUMMARY | 2020-01-25 00:03 | XMS REPORT ---
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 Name Role Phone BOSTON KILPATRICK Unavailable PROBLEMS Type Condition ICD9-CM Code CZS97-XM Code Onset Dates Condition S tatus SNOMED Code Problem Hypertension, benign I10 Active 34207885 Problem Controlled type 2 diabetes m ellitus without complication, without long- term current use of insulin E11.9 Active 050770612 ALLERGIES No Information ENCOUNTERS Encounter Location Date Diagnosis [place] [address] [address] May, [place] [address] [address] May, Controlled type 2 diabetes m ellitus without complication, without long-term current use of insulin E11.9 [place] [address] [place] [id number] [address] [place] [address] Apr, Controlled type 2 diabetes m ellitus without complication, without long-term current use of insulin E11.9 and Hypertension, benign I10 [place] [address] [place] [id number] [address] [place] [address] Mar, Controlled type 2 diabetes m ellitus without complication, without long-term current use of insulin E11.9 and Acute pain of right knee M25.561 [place] [address] [address] [place] [id number] [address] [place] [address] Mar, [place] [address] [address] [place] [id number] [address] [place] [address] Feb, Controlled type 2 diabetes m ellitus without complication, without long-term current use of insulin E11.9 [place] [address] [place] [id number] [address] [place] [address] Dec, Controlled type 2 diabetes m ellitus without complication, without long-term current use of insulin E11.9 and Hypertension, benign I10 [facility] [address] [id number] [address] [place] [address] October, Controlled type 2 diabetes m ellitus without complication, without long-term current use of insulin E11.9 and Hypertension, benign I10 [facility] [address] [id number] [address] [place] [address] Sep, [facility] [address] [id number] [address] [place] [id number] Jul, Dental examination Z01.20 [facility] [address] [id number] [address] [place] [address] Jun, [facility] [address] [id number] [address] [place] [address] May, Encounter for immunization Z 23 [facility] [address] [id number] [address] [place] [id number] Apr, [facility] [address] [id number] [place] [address] [id number] Jan, Dental examination Z01.20 [facility] [address] [id number] [address] [place] [id number] Jan, Dental examination Z01.20 [facility] [address] [id number] [address] [place] [address] Aug, Controlled type 2 diabetes m ellitus without complication, without long-term current use of insulin E11.9 [facility] [address] [id number] [address] [place] [phone] 16 Feb, 2016 [facility] without [facility], unspecified nursing home insulin use status E11.65 [facility] [address] [id number] [address] [place] [phone] Feb, [facility] [address] [facility] [id number] [address] [place] [address] Jan, [facility] [address] [address] Nov, Controlled type 2 diabetes melva francois without complication, without long-term current use of insulin E11.9 [facility] [address] [address] October, Uncontrolled diabetes mellit type 2 without complications, 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 [place] [address] October, Vision changes H53.9 ; Hyper tension, benign I10 ; Polyuria R35.8 and Polydipsia R63.1 [place] [address] [address] October, Vision changes H53.9 ; Dizzi ness R42 ; Polyuria R35.8 ; Polydipsia R63.1 and Hypertension, benign I10 [facility] [address] [address] Sep, Rhinitis, allergic J30.9 ; O ME (otitis media with effusion), bilateral H65.93 ; Bilateral headaches R51 and Dizziness R42 [place] [address] [address] May, Encounter for immunization Z 23 [place] [address] [address] Sep, [place] [address] [address] Sep, [place] [address] [address] Sep, [facility] [address] [address] Sep, [place] [address] [address] Sep, [facility] [address] [id number] [address] [place] [phone] Sep, [facility] [address] [id number] [address] [place] [address] Sep, [facility] [address] [id number] [address] [place] [phone] Aug, [facility] [address] [id number] [address] [place] [phone] Aug, [facility] [address] [id number] [address] [place] [address] Jan, [facility] [address] [id number] [address] [place] [phone] Aug, [facility] [address] [id number] [address] [place] [address] Mar, [facility] [address] [id number] [address] [place] [address] Mar, [facility] [address] [id number] [address] [place] [phone] Mar, [facility] [address] [id number] [address] [place] [address] Feb, [facility] [address] [id number] [address] [place] [address] Feb, IMMUNIZATIONS No Known Immunizations SOCIAL HISTORY Never Assessed REASON FOR VISIT Samples Request PLAN OF CARE VITAL SIGNS MEDICATIONS Unknown [...]
--- OUTSIDE RECORDS SUMMARY | 2020-01-25 00:03 | XMS REPORT ---
Author Author Ene Caldera Doctor Organization [facility] Address Unknown Phone Unavailable Care Team Providers Care Statistical Methods Teacher Name Role Phone Migration, Doctor Unavailable Unavailable PROBLEMS Type Condition ICD9-CM Code [id number] Code Onset Dates Condition S tatus SNOMED Code Problem Controlled type 2 diabetes m ellitus without complication, without long- term current use of insulin E11.9 Active 422734547 Problem Hypertension, benign I10 Active 46985324 ALLERGIES No Information ENCOUNTERS Encounter Location Date Diagnosis [facility] [address] [facility] [id number] [address] [place] [address] Feb, Flank pain R10.9 [place] [address] [address] May, [place] [address] [address] May, Controlled type 2 diabetes mellitus with out complication, without long-term current use of insulin E11.9 [place] [address] [address] Apr, Controlled type 2 diabetes mellitus with out complication, without long-term current use of insulin E11.9 and Hypertension, benign I10 [facility] [address] [address] Mar, Controlled type 2 diabetes mellitus with out complication, without long-term current use of insulin E11.9 and Acute pain of right knee M25.561 [place] [address] [address] Mar, [place] [address] [address] Feb, Controlled type 2 diabetes mellitus with out complication, without long-term current use of insulin E11.9 [place] [address] [address] Dec, Controlled type 2 diabetes mellitus with out complication, without long-term current use of insulin E11.9 and Hypertension, benign I10 [place] [address] [address] October, Controlled type 2 diabetes mellitus with out complication, without long-term current use of insulin E11.9 and Hypertension, benign I10 [place] [address] [address] Sep, [facility] [address] [id number] Jul, Dental examination Z01.20 [place] [address] [address] Jun, [place] [address] [address] May, Encounter for immunization Z23 [facility] [address] [id number] Apr, [facility] [address] [id number] Jan, Dental examination Z01.20 [facility] [address] [id number] Jan, Dental examination Z01.20 [place] [address] [address] Aug, Controlled type 2 diabetes mellitus with out complication, without long-term current use of insulin E11.9 [place] [address] [address] Feb, Uncontrolled diabetes mellitus type 2 wi thout complications, 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 [place] [address] [address] Feb, [place] [address] [address] Jan, [place] [address] [address] Nov, Controlled type 2 diabetes mellitus with out complication, without long-term current use of insulin E11.9 [facility] [address] [address] October, Uncontrolled diabetes mellitus type 2 wi thout complications, 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 [place] [address] [address] October, Vision changes H53.9 ; Hypertension, gato ign I10 ; Polyuria R35.8 and Polydipsia R63.1 [facility] [address] [address] October, Vision changes H53.9 ; Dizziness R42 ; P olyuria R35.8 ; Polydipsia R63.1 and Hypertension, benign I10 [facility] [address] [facility] [id number] [address] [place] [address] Sep, Rhinitis, allergic J30.9 ; O ME (otitis media with effusion), bilateral H65.93 ; Bilateral headaches R51 and Dizziness R42 [place] [address] [address] May, Encounter for immunization Z23 [place] [address] [address] Sep, [place] [address] [address] Sep, [facility] [address] [address] Sep, [facility] [address] [address] Sep, [place] [address] [address] Sep, [place] [address] [address] Sep, [place] [address] [address] Sep, [facility] [address] [id number] [place] [address] Aug, [facility] [address] [id number] [place] [address] Aug, [facility] [address] [id number] [place] [address] Jan, [facility] [address] [place] [id number] [place] [address] Aug, [facility] [address] [place] [id number] [place] [address] Mar, [facility] [address] [place] [id number] [place] [address] Mar, [facility] [address] [id number] [place] [address] Mar, [facility] [address] [place] [id number] [place] [address] Feb, [facility] [address] [id number] [place] [address] Feb, IMMUNIZATIONS No Known Immunizations SOCIAL HISTORY Never Assessed REASON FOR VISIT PLAN OF CARE VITAL SIGNS MEDICATIONS No Known Medications RESULTS No Results [...]
--- OUTSIDE RECORDS SUMMARY | 2020-01-25 00:03 | XMS REPORT ---
Author Author Ene Caldera Doctor Organization [facility] Address Unknown Phone Unavailable Care Team Providers Care Merchandising Internship Name Role Phone Migration, Doctor Unavailable Unavailable PROBLEMS Type Condition ICD9-CM Code TVU84-JN Code Onset Dates Condition S tatus SNOMED Code Problem Controlled type 2 diabetes m ellitus without complication, without long- term current use of insulin E11.9 Active 868926922 Problem Hypertension, benign I10 Active 01774741 ALLERGIES No Information ENCOUNTERS Encounter Location Date Diagnosis [place] [address] [place] [id number] [address] [place] [address] May, [place] [address] [place] [id number] [address] [place] [address] May, Controlled type 2 diabetes m ellitus without complication, without long-term current use of insulin E11.9 [place] [address] [address] [place] [id number] [address] [place] [address] Apr, Controlled type 2 diabetes m ellitus without complication, without long-term current use of insulin E11.9 and Hypertension, benign I10 [place] [address] [address] [facility] [id number] [address] [place] [address] Mar, Controlled type 2 diabetes m ellitus without complication, without long-term current use of insulin E11.9 and Acute pain of right knee M25.561 [place] [address] [address] [facility] [id number] [address] [place] [address] Mar, [place] [address] [place] [id number] [address] [place] [address] Feb, Controlled type 2 diabetes m ellitus without complication, without long-term current use of insulin E11.9 [place] [address] [address] [facility] [id number] [address] [place] [address] Dec, Controlled type 2 diabetes m ellitus without complication, without long-term current use of insulin E11.9 and Hypertension, benign I10 [facility] [address] [id number] [address] [place] [address] October, Controlled type 2 diabetes m stephanieitus without complication, without long-term current use of insulin E11.9 and Hypertension, benign I10 [facility] [address] [id number] [address] [place] [address] Sep, [facility] [address] [id number] [address] [place] [id number] Jul, Dental examination Z01.20 [facility] [address] [id number] [address] [place] [address] Jun, [facility] [address] [id number] [address] [place] [address] May, Encounter for immunization Z 23 [facility] [address] [id number] [address] [place] [id number] Apr, [facility] [address] [id number] [address] [place] [id number] Jan, Dental examination Z01.20 [facility] [address] [id number] [address] [place] [id number] Jan, Dental examination Z01.20 [facility] [address] [id number] [address] [place] [address] Aug, Controlled type 2 diabetes m priscila without complication, without long-term current use of insulin E11.9 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 [address] [id number] [address] [place] [address] Feb, [facility] [address] [id number] [address] [place] [address] Jan, [facility] [address] [address] Nov, Controlled type 2 diabetes melva francois without complication, without long-term current use of insulin E11.9 [facility] [address] [address] October, Uncontrolled diabetes mellit type 2 without complications, unspecified [facility] insulin use status E11.65 [place] [address] [address] October, Vision changes H53.9 ; Hyper tension, benign I10 ; Polyuria R35.8 and Polydipsia R63.1 [place] [address] [address] October, Vision changes H53.9 ; Dizzi ness R42 ; Polyuria R35.8 ; Polydipsia R63.1 and Hypertension, benign I10 [facility] [address] [address] Sep, Rhinitis, allergic J30.9 ; O ME (otitis media with effusion), bilateral H65.93 ; Bilateral headaches R51 and Dizziness R42 [place] [address] [address] May, Encounter for immunization Z 23 [place] [address] [address] 14 Sep, 2014 [place] [address] [address] Sep, [facility] [address] [address] Sep, [facility] [address] [address] Sep, [facility] [address] [address] Sep, [place] [address] [address] Sep, [facility] [address] [id number] [address] [place] [address] Sep, [facility] [address] [id number] [address] [place] [address] Aug, [facility] [address] [id number] [address] [place] [address] Aug, [facility] [address] [id number] [address] [place] [address] Jan, [facility] [address] [id number] [address] [place] [address] Aug, [facility] [address] [id number] [address] [place] [address] Mar, [facility] [address] [id number] [address] [place] [address] Mar, [facility] [address] [id number] [address] [place] [address] Mar, [facility] [address] [id number] [address] [place] [address] Feb, [facility] [address] [id number] [address] [place] [address] Feb, IMMUNIZATIONS No Known Immunizations SOCIAL HISTORY Never Assessed REASON FOR VISIT [facility] PLAN OF CARE VITAL SIGNS MEDICATIONS Unknown [...]
--- OUTSIDE RECORDS SUMMARY | 2020-01-25 00:04 | XMS REPORT ---
Author Author Ene KILPATRICK Organization [employer] Address Unknown Phone Unavailable Care Team Providers Care Regional Airline Pilot Name Role Phone BOSTON KILPATRICK CP Unavailable Allergies, Adverse Reactions, Alerts Substance Reaction Event Type Bactrim Info Not Available Drug Allergy Codeine Info Not Available Drug Allergy Problems Problem Type Condition Code Onset Dates Condition Statu s Assessment Dizziness R42 Active Assessment OME (otitis media with effusion), bilateral H65.93 Active Assessment Bilateral headaches R51 Active Problem Acute upper respiratory infections of unspecified site 465.9 Active Problem Ingrowing nail 703.0 Active Problem Cough 786.2 Active Problem Allergic rhinitis, cause unspecified 477.9 Active Assessment Rhinitis, allergic J30.9 Active Problem Acute sinusitis, unspecified 461.9 Active Problem Screening for thyroid disorder V77.0 Active Medications Medication Code System Code Instructions Start Date End Date Status Dosage Parafon Forte DSC [facility] [address]-26 500 MG Orally 2 times a da y October 18, 2015 December 17, 2015 1 tablet Procedures Procedure Coding System Code Date KENALOG 40 MG/ML (PER 10 MG) CPT-4 J3301 Apr 2015 THER/PROPH/DIAG INJ, SC/IM CPT-4 43907 October 18, 2015 Office Visit, Est Pt., Level 3 CPT-4 74558 [facility] 2015 Vital Signs Date/Time: October 18, 2015 Temperature 98.8 F Weight 270 lbs Height 63 in BMI 47.82 Index Blood Pressure Diastolic 86 mmHg Blood Pressure Systolic 140 mmHg Cardiac Monitoring Heart Rate 80 bpm Results No Known Results Summary Purpose [employer] Submission
--- OUTSIDE RECORDS SUMMARY | 2020-01-25 00:04 | XMS REPORT ---
Author Author Ene KILPATRICK Organization [facility] Address [address] [place] [address] Care Team Providers Care Line Prep Cook Name Role Phone BOSTON KILPATRICK Unavailable PROBLEMS Type Condition ICD9-CM Code FIH04-GR Code Onset Dates Condition S tatus SNOMED Code Problem Hypertension, benign I10 Active 35521534 Problem Controlled type 2 diabetes m ellitus without complication, without long- term current use of insulin E11.9 Active 268807533 ALLERGIES No Information ENCOUNTERS Encounter Location Date Diagnosis [place] [address] [address] Dec, Controlled type 2 diabetes m ellitus without complication, without long-term current use of insulin E11.9 and Hypertension, benign I10 [facility] [address] [address] October, Controlled type 2 diabetes m ellitus without complication, without long-term current use of insulin E11.9 and Hypertension, benign I10 [facility] [address] [place] [id number] [address] [place] [address] Sep, [facility] [address] [id number] Jul, Dental examination Z01.20 [facility] [address] [place] [id number] [address] [place] [address] Jun, [facility] [address] [address] May, Encounter for immunization Z 23 [facility] [address] [place] [id number] [place] [address] [id number] Apr, [facility] [address] [id number] Jan, Dental examination Z01.20 [facility] [address] [id number] [address] [place] [address] [id number] Jan, Dental examination Z01.20 [facility] [address] [facility] [id number] [address] [place] [phone] Aug, Controlled type 2 diabetes m ellitus without complication, without long-term current use of insulin E11.9 [facility] [address] 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 [id number] [address] [place] [phone] Feb, [facility] [address] [facility] [id number] [address] [place] [phone] Jan, [facility] [address] [facility] [id number] [address] [place] [address] Nov, Controlled type 2 diabetes m ellitus without complication, without long-term current use of insulin E11.9 [facility] [address] 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 [id number] [address] [place] [address] October, Vision changes H53.9 ; Hyper tension, benign I10 ; Polyuria R35.8 and Polydipsia R63.1 [facility] [address] [facility] [id number] [address] [place] [address] October, Vision changes H53.9 ; Dizzi ness R42 ; Polyuria R35.8 ; Polydipsia R63.1 and Hypertension, benign I10 [facility] [address] [facility] [id number] [address] [place] [phone] Sep, Rhinitis, allergic J30.9 ; O ME (otitis media with effusion), bilateral H65.93 ; Bilateral headaches R51 and Dizziness R42 [facility] [address] [id number] [address] [place] [address], [place] [address] May, Encounter for immunization Z 23 [facility] [address] [id number] [address] [place] [address], [place] [address] 14 Sep, 2014 [facility] [address] [id number] [address] [place] [phone] Sep, [facility] [address] [id number] [address] [place] [phone] Sep, [facility] [address] [id number] [address] [place] [address], [place] [address] Sep, [facility] [address] [id number] [address] [place] [phone] Sep, [facility] [address] [id number] [address] [place] [address], [place] [address] Sep, [facility] [address] [id number] [address] [place] [phone] Sep, [facility] [address] [id number] [address] [place] [address] Aug, [facility] [address] [id number] [address] [place] [phone] Aug, [facility] [address] [id number] [address] [place] [phone] Jan, [facility] [address] [id number] [address] [place] [address] Aug, [facility] [address] [id number] [address] [place] [address] Mar, [facility] [address] [id number] [address] [place] [phone] Mar, [facility] [address] [id number] [address] [place] [address] Mar, [facility] [address] [facility] [id number] [address] [place] [address] Feb, [facility] [address] [facility] [id number] [address] [place] [phone] Feb, IMMUNIZATIONS No Known Immunizations SOCIAL HISTORY Never Assessed REASON FOR VISIT Requests return call PLAN OF CARE VITAL SIGNS MEDICATIONS Unknown [...]
--- OUTSIDE RECORDS SUMMARY | 2020-01-25 00:04 | XMS REPORT | Continuity of Care Document ---
Author Organization Unknown Address Unknown Phone Unavailable Allergies Active Description Code Type Severity Reaction Onset Reported/Identified Relationship to Patient Clinical Status Yes Bactrim Drug Allergy N/A N/A 03/14/2012 Yes Codeine Drug Allergy N/A N/A 03/14/2012 Yes Bactrim Drug Allergy 03/14/2012 Yes Codeine Drug Allergy 03/14/2012 Yes sulfamethoxazole [id number] Drug Allergy Unknown N/A 01/24/2020 Yes trimethoprim [id number] Drug Allergy Unknown N/A 01/24/2020 Medications There is no data. Problems Date Dx Coded Attending Type Code Diagnosis Diagnosed By 03/14/2012 703.0 NAIL INGROWN 03/14/2012 703.0 NAIL INGROWN 03/14/2012 NGOZI SAGE DO 703.0 NAIL INGROWN 03/14/2012 NGOZI SAGE DO 703.0 NAIL INGROWN 03/14/2012 703.0 NAIL INGROWN 09/02/2012 786.2 cough 09/02/2012 786.2 cough 09/02/2012 NGOZI SAGE DO K 786.2 cough 09/02/2012 NGOZI SAGE DO 786.2 COUGH 2013 465.9 UPPE R RESPIRATORY INFECTION 2013 NGOZI SAGE DO 465.9 UPPER RESPIRATORY INFECTION 2013 NGOZI SAGE DO 465.9 UPPER RESPIRATORY INFECTION 06/23/2013 ANT BYNUM APRN Ot 381 .4 06/23/2013 ANT BYNUM HEEL SCOURER Ot 388.70 09/17/2013 NGOZI SAGE DO 461.9 SINUSITIS ACUTE 09/17/2013 NGOZI SAGE DO 477.9 RHINITIS 09/17/2013 NGOZI SAGE DO V77.0 SCREENING FOR THYROID DISORDERS 09/17/2013 NGOZI SAGE DO 461.9 SINUSITIS ACUTE 09/17/2013 NGOZI SAGE DO 477.9 RHINITIS 09/17/2013 NGOZI SAGE DO V77.0 SCREENING FOR THYROID DISORDERS Procedures Code Description [place] [address] NAIL REMOVAL PERMANENT (PARTIAL OR COMPLETE) 05/03/2012 35779 STRE P A (IN-HOUSE) 2013 61256 ROUT INE VENIPUNCTURE 09/28/2013 07121 CMP 09/29/2013 2592817 GF R CALC (RESULT ONLY) 09/29/2013 THYANA THY ROID ANALYZER 09/29/2013 Results Test Result Range LIPID PANEL - 01/15/18 12:11 CHOLESTEROL, TOTAL 214 mg/dL <200 HDL CHOLESTEROL 37 mg/dL >50 TRIGLYCERIDES 154 mg/dL <150 LDL-CHOLESTEROL 148 mg/dL (calc) NRG CHOL/HDLC RATIO 5.8 (calc) <5.0 NON HDL CHOLESTEROL 177 mg/dL (calc) <13 0 Encounters ACCT No. Visit Date/Time Discharge Status Pt. Type Provider Facility Loc./Unit Complaint [id number] 01/15/2018 12:00:00 01/15/2018 23:59: 59 CLS Outpatient BOSTON KILPATRICK APRN [facility] [id number] 01/15/2018 12:00:00 Document Registration [id number] 01/24/2020 20:28:00 020 21:45:00 DIS Emergency NENA TAY DO a [facility] ER L EAR PAIN/DIZZINESS [id number] 06/23/2013 11:52:00 014 17:50:00 DIS Emergency ANT BYNUM APRN [facility] ER [id number] 09/28/2013 15:35:00 09/28/2013 23:59: 59 CLS Outpatient NGOZI SAGE DO [id number] 09/17/2013 16:39:00 09/17/2013 23:59: 59 CLS Outpatient NGOZI SAGE DO [id number] 09/02/2012 15:56:00 09/02/2012 23:59: 59 CLS Outpatient [id number] 04/01/2012 18:11:00 04/01/2012 23:59:5 9 CLS Outpatient [id number] 2013 16:13:00 Document Registration
--- OUTSIDE RECORDS SUMMARY | 2020-01-25 00:04 | XMS REPORT ---
Author Author Ene KILPATRICK Organization [facility] Address [address] [place] [address] Care Team Providers Care Bench Mechanic Name Role Phone BOSTON KILPATRICK Unavailable PROBLEMS Type Condition ICD9-CM Code DPH85-CQ Code Onset Dates Condition S tatus SNOMED Code Problem Hypertension, benign I10 Active 77073145 Problem Controlled type 2 diabetes m ellitus without complication, without long- term current use of insulin E11.9 Active 945901947 ALLERGIES Substance Reaction Event Type Date Status Sulfamethoxazole-Trimethoprim Unknown Drug Allergy October, 8 Active Codeine Unknown Drug Allergy October, Active Bactrim anaphylaxis Non Drug Allergy October, Active Pineapple and Eggplant Unknown Non Drug Allergy October, A ctive Blue 1 dye swelling tongue and face Non Drug Allergy October, Active ENCOUNTERS Encounter Location Date Diagnosis [facility] [address] [place] [id number] [address] [place] [address] Dec, Controlled type 2 diabetes m ellitus without complication, without long-term current use of insulin E11.9 and Hypertension, benign I10 [facility] [address] [place] [id number] [address] [place] [address] October, Controlled type 2 diabetes m ellitus without complication, without long-term current use of insulin E11.9 and Hypertension, benign I10 [facility] [address] [place] [id number] [address] [place] [address] Sep, [facility] [address] [place] [id number] [address] [place] [id number] Jul, Dental examination Z01.20 [facility] [address] [place] [id number] [address] [place] [address] Jun, [facility] [address] [place] [id number] [address] [place] [address] May, Encounter for immunization Z 23 [facility] [address] [id number] [address] [place] [id number] Apr, [facility] [address] [id number] [address] [place] [id number] Jan, Dental examination Z01.20 [facility] [address] [id number] [address] [place] [id number] Jan, Dental examination Z01.20 [facility] [address] [id number] [address] [place] [address] Aug, Controlled type 2 diabetes m stephanieitus without complication, without long-term current use of insulin E11.9 [facility] [address] [facility] [id number] [address] [place] [address] Feb, Uncontrolled diabetes [facility] type 2 without complications, 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 [facility] [address] [facility] [id number] [address] [place] [address] Feb, [facility] [address] [facility] [id number] [address] [place] [phone] Jan, [facility] [address] [facility] [id number] [address] [place] [address] Nov, Controlled type 2 diabetes m stephanieitus without complication, without long-term current use of insulin E11.9 [facility] [address] [facility] [id number] [address] [place] [address] October, Uncontrolled diabetes [facility] type 2 without complications, unspecified intermediate insulin use status E11.65 [facility] [address] [facility] [id number] [address] [place] [address] October, Vision changes H53.9 ; Hyper tension, benign I10 ; Polyuria R35.8 and Polydipsia R63.1 [facility] [address] [facility] [id number] [address] [place] [phone] October, Vision changes H53.9 ; Dizzi ness R42 ; Polyuria R35.8 ; Polydipsia R63.1 and Hypertension, benign I10 [facility] [address] [facility] [id number] [address] [place] [address] Sep, Rhinitis, allergic J30.9 ; O ME (otitis media with effusion), bilateral H65.93 ; Bilateral headaches R51 and Dizziness R42 [facility] [address] [facility] [id number] [address] [place] [address] May, Encounter for immunization Z 23 [facility] [address] [facility] [id number] [address] [place] [phone] Sep, [facility] [address] [place] [id number] [place] [address] Sep, [facility] [address] [place] [id number] [address] [place] [address] Sep, [facility] [address] [place] [id number] [address] [place] [address] Sep, [facility] [address] [place] [id number] [address] [place] [address] Sep, [facility] [address] [place] [id number] [address] [place] [address] Sep, [facility] [address] [place] [id number] [address] [place] [address] Sep, [facility] [address] [facility] [id number] [address] [place] [address] Aug, [facility] [address] [facility] [id number] [address] [place] [address] Aug, [facility] [address] [place] [id number] [address] [place] [address] Jan, [facility] [address] [facility] [id number] [address] [place] [address] Aug, [facility] [address] [place] [id number] [address] [place] [address] Mar, [facility] [address] [facility] [id number] [address] [place] [address] Mar, [facility] [address] [facility] [id number] [address] [place] [address] Mar, [facility] [address] [facility] [id number] [address] [place] [phone] Feb, [facility] [address] [facility] [id number] [address] [place] [phone] Feb, IMMUNIZATIONS No Known Immunizations SOCIAL HISTORY Never Assessed REASON FOR VISIT Hypertension- Shimon MOSES , PT needs refills, strips- Shimon MOSES PLAN OF CARE VITAL SIGNS Height 63 in 2017-11-10 Weight 240.0 lbs 2017-11-10 Temperature 98.6 degrees Fahrenheit 2017-11-10 Heart Rate 80 bpm 2017-11-10 Respiratory Rate 20 2017-11-10 BMI 42.51 kg/m2 2017-11-10 Blood pressure systolic 135 mmHg 2017-11-10 Blood pressure diastolic 78 mmHg 2017-11-10 MEDICATIONS Medication Instructions Dosage Frequency Start Date End Date Duration S tatus Lisinopril 20 MG TAKE ONE TABLET BY MOUTH ONCE DAILY 90 Active cetirizine 10 mg take 1 tablet (10 mg) by oral route o nce daily Jan, Active Parafon Forte DSC Active Naproxen 500 MG Orally every 12 hrs 1 tablet as needed 12h 30 Active Chlorzoxazone 500 MG TAKE ONE TABLET BY MOUTH TWICE DAILY Dec, 30 Active RESULTS Name Result Date Reference Range A1C (IN HOUSE) 2017-11-10 A1C IN HOUSE 6.2 4.3 - 5.6 % Previous A1c 5.8 Lot 856 Exp date 08/2019 PROCEDURES Procedure Date Ordered Result Body Site GLYCATED HEMOGLOBIN TEST November 10, 2017 INSTRUCTIONS MEDICATIONS ADMINISTERED No Known Medications MEDICAL (GENERAL) HISTORY Type Description Date Medical History seasonal allergies Medical History Transient cerebral ischemia, unspecified type Surgical History cholecystectomy Surgical History tonsillectomy Surgical History x 2 Hospitalization History surgeries Hospitalization History menangitis in middle school Hospitalization History arm injury at 1 Hospitalization History scarlet fever as a child
--- OUTSIDE RECORDS SUMMARY | 2020-01-25 00:04 | XMS REPORT ---
Author Author Ene MAJOR [facility] Address [address] [place] [address] Care Team Providers Care Thinner Sprayer Name Role Phone KALIA MAJOR Unavailable PROBLEMS Type Condition ICD9-CM Code RUL00-AP Code Onset Dates Condition S tatus SNOMED Code Problem Hypertension, benign I10 Active 22572761 Problem Controlled type 2 diabetes m ellitus without complication, without long- term current use of insulin E11.9 Active 042331619 ALLERGIES No Information ENCOUNTERS Encounter Location Date Diagnosis [facility] [address] [address] October, Controlled type 2 diabetes m ellitus without complication, without long-term current use of insulin E11.9 and Hypertension, benign I10 [facility] [address] [address] Sep, [facility] [address] [id number] Jul, Dental examination Z01.20 [place] [address] [address] Jun, [facility] [address] [address] May, Encounter for immunization Z 23 [facility] [address] [place] [id number] [place] [id number] Apr, [facility] [address] [id number] Jan, Dental examination Z01.20 [facility] [address] [place] [id number] [place] [address] [id number] Jan, Dental examination Z01.20 [place] [address] [address] [facility] [id number] [address] [place] [address] Aug, Controlled type 2 diabetes melva francois without complication, without long-term current use of insulin E11.9 [place] [address] [place] [id number] [address] [place] [address] Feb, Uncontrolled diabetes [facility] type 2 without complications, 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 E11.65 [place] [address] [address] Feb, [place] [address] [place] [id number] [place] [address] Jan, [place] [address] [address] Nov, Controlled type 2 diabetes melva francois without complication, without long-term current use of insulin E11.9 [place] [address] [address] October, Uncontrolled diabetes [facility] type 2 without complications, unspecified halfway insulin use status E11.65 [place] [address] [address] October, Vision changes H53.9 ; Hyper tension, benign I10 ; Polyuria R35.8 and Polydipsia R63.1 [place] [address] [address] October, Vision changes H53.9 ; Dizzi ness R42 ; Polyuria R35.8 ; Polydipsia R63.1 and Hypertension, benign I10 [facility] [address] [place] [id number] [address] [place] [address] Sep, Rhinitis, allergic J30.9 ; O ME (otitis media with effusion), bilateral H65.93 ; Bilateral headaches R51 and Dizziness R42 [facility] [address] [place] [id number] [address] [place] [address] May, Encounter for immunization Z 23 [facility] [place] [facility] [address] [id number] [address] [place] [address], [place] [address] 14 Sep, 2014 [facility] [address] [id number] [address] [place] [address], [place] [address] Sep, [facility] [address] [id number] [address] [place] [address], [place] [address] Sep, [facility] [address] [id number] [address] [place] [address], [place] [address] Sep, [facility] [address] [id number] [address] [place] [address], [place] [address] Sep, [facility] [address] [id number] [address] [place] [address], [place] [address] Sep, [facility] [address] [id number] [address] [place] [address], [place] [address] Sep, [facility] [address] [id number] [address] [place] [address], [place] [address] Aug, [facility] [address] [id number] [address] [place] [address], [place] [address] Aug, [facility] [address] [id number] [address] [place] [address], [place] [address] Jan, [facility] [address] [id number] [address] [place] [address], [place] [address] Aug, [facility] [address] [id number] [address] [place] [address], [place] [address] Mar, [facility] [address] [id number] [address] [place] [address], [place] [address] Mar, [facility] [address] [id number] [address] [place] [address], [place] [address] Mar, [facility] [address] [id number] [address] [place] [address], [place] [address] Feb, [facility] [address] [id number] [address] [place] [address], [place] [address] Feb, IMMUNIZATIONS No Known Immunizations SOCIAL HISTORY Never Assessed REASON FOR VISIT schedule appt PLAN OF CARE VITAL SIGNS MEDICATIONS No [...]
--- OUTSIDE RECORDS SUMMARY | 2020-01-25 00:04 | XMS REPORT ---
Author Author Ene KILPATRICK Organization [facility] Address [address] [place] [address] Care Team Providers Care Tearoom Host Name Role Phone BOSTON KILPATRICK Unavailable PROBLEMS Type Condition ICD9-CM Code [id number] Code Onset Dates Condition S tatus SNOMED Code Problem Controlled type 2 diabetes m ellitus without complication, without long- term current use of insulin E11.9 Active 209480348 ALLERGIES Substance Reaction Event Type Date Status Sulfamethoxazole-Trimethoprim Unknown Drug Allergy Aug, 7 Active Codeine Unknown Drug Allergy Aug, Active Pineapple and Eggplant Unknown Non Drug Allergy Aug, A ctive Blue 1 dye swelling tongue and face Non Drug Allergy Aug, Active SOCIAL HISTORY Never Assessed PLAN OF CARE Activity Details Follow Up 3 Months Reason:dm2 3mo. chk up VITAL SIGNS Height 63 in 2016-08-23 Weight 237.9 lbs 2016-08-23 Temperature 98.0 degrees Fahrenheit 2016-08-23 Heart Rate 88 bpm 2016-08-23 Respiratory Rate 20 2016-08-23 BMI 42.14 kg/m2 2016-08-23 Blood pressure systolic 122 mmHg 2016-08-23 Blood pressure diastolic 80 mmHg 2016-08-23 MEDICATIONS Medication Instructions Dosage Frequency Start Date End Date Duration S tatus cetirizine 10 mg take 1 tablet (10 mg) by oral route o nce daily Jan, Active Parafon Forte DSC 500 MG Orally 2 times a day 1 tablet 12h 1 6 Feb, 2016 Aug, 30 day(s) Active Omeprazole 20 MG Orally Once a day 1 capsule 24h Active Lisinopril 20 mg 1 tablet 24h Active Flonase 50 MCG/ACT Nasally Once a day 1 spray in each nostril 24h Active Naproxen 500 MG Orally every 12 hrs 1 tablet as needed 12h 16 Sep, 2 016 Active RESULTS Name Result Date Reference Range A1C (IN HOUSE) 2016-08-23 A1C IN HOUSE 5.8 4.3 - 5.6 % Previous A1c 5.9 Lot [id number] Exp date 04/2018 MICROALBUMIN, URINE (IN HOUSE) 2016-08-23 MICROALBUMIN normal Lot # [id number] Exp date 07/2017 Clarity clear Color yellow ALB 30 CRE 300 A:C (IN HOUSE) <30 Control + Control Lot # Exp date PROCEDURES Procedure Date Ordered Result Body Site GLYCATED HEMOGLOBIN TEST August 23, 2016 MICROALBUMIN, SEMIQUANT August 23, 2016 IMMUNIZATIONS No Known Immunizations MEDICAL (GENERAL) HISTORY Type Description Date Medical History seasonal allergies Medical History Transient cerebral ischemia, unspecified type Surgical History cholecystectomy Surgical History tonsillectomy Surgical History x 2 Hospitalization History surgeries Hospitalization History menangitis in middle school Hospitalization History arm injury at 1 Hospitalization History scarlet fever as a child
--- OUTSIDE RECORDS SUMMARY | 2020-01-25 00:04 | XMS REPORT ---
Author Author Ene KILPATRICK [facility] eClinicalWorks Address Unknown Phone Unavailable Care Team Providers Care Joy Operator Helper Name Role Phone BOSTON KILPATRICK CP Unavailable Allergies No Known Allergies Problems No Known Problems Medications Medication Code System Code Instructions Start Date End Date Status Dosage Lisinopril [facility] [id number] 20 MG TAKE ONE TABLET BY MOUTH ONCE DAILY Results No Known Results Summary Purpose eClinicalWorks Submission
--- OUTSIDE RECORDS SUMMARY | 2020-01-25 00:04 | XMS REPORT ---
Author Author Ene KILPATRICK Organization [facility] Address [address] [place] [address] Care Team Providers Care Generation Engineer Name Role Phone BOSTON KILPATRICK Unavailable PROBLEMS Type Condition ICD9-CM Code [id number] Code Onset Dates Condition S tatus SNOMED Code Problem Hypertension, benign I10 Active 91531897 Problem Controlled type 2 diabetes m ellitus without complication, without long- term current use of insulin E11.9 Active 754236989 ALLERGIES No Information ENCOUNTERS Encounter Location Date Diagnosis [place] [address] [address] October, Controlled type 2 diabetes m ellitus without complication, without long-term current use of insulin E11.9 and Hypertension, benign I10 [facility] [address] [address] Sep, [facility] [address] [id number] Jul, Dental examination Z01.20 [facility] [address] [address] Jun, [facility] [address] [address] May, Encounter for immunization Z 23 [facility] [address] [place] [id number] [place] [id number] Apr, [facility] [address] [id number] Jan, Dental examination Z01.20 [facility] [address] [id number] Jan, Dental examination Z01.20 [facility] [address] [place] [id number] [place] [place] [address] Aug, Controlled type 2 diabetes m priscila without complication, without long-term current use of insulin E11.9 [place] [address] [address] [place] [id number] [place] [phone] Feb, Uncontrolled diabetes [facility] type 2 without complications, unspecified [facility] insulin use status E11.65 [facility] [address] [place] [id number] [place] [place] [address] Feb, [place] [address] [address] [place] [id number] [place] [address] Jan, [place] [address] [address] Nov, Controlled type 2 diabetes melva francois without complication, without long-term current use of insulin E11.9 [place] [address] [address] [place] [id number] [place] [phone] October, Uncontrolled diabetes [facility] type 2 without complications, 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 [place] [address] [place] [place] [address] October, Vision changes H53.9 ; Hyper tension, benign I10 ; Polyuria R35.8 and Polydipsia R63.1 [place] [address] [address] [place] [id number] [place] [phone] October, Vision changes H53.9 ; Dizzi ness R42 ; Polyuria R35.8 ; Polydipsia R63.1 and Hypertension, benign I10 [facility] [address] [place] [place] [phone] Sep, Rhinitis, allergic J30.9 ; O ME (otitis media with effusion), bilateral H65.93 ; Bilateral headaches R51 and Dizziness R42 [place] [address] [address] [place] [id number] [place] [place] [phone] May, Encounter for immunization Z 23 [facility] [address] [id number] [address] [place] [address], [place] [address] 14 Sep, 2014 [facility] [address] [id number] [address] [place] [address], [place] [address] 13 Sep, 2014 [facility] [address] [id number] [address] [place] [address], [place] [address] 10 Sep, 2013 [facility] [address] [id number] [address] [place] [address], [place] [address] Sep, [facility] [address] [id number] [address] [place] [address], [place] [address] Sep, [facility] [address] [id number] [address] [place] [address], [place] [address] Sep, [facility] [address] [id number] [address] [place] [address], [place] [address] Sep, [facility] [address] [id number] [address] [place] [address], [place] [address] Aug, [facility] [address] [id number] [address] [place] [address], [place] [address] Aug, [facility] [address] [id number] [address] [place] [address], [place] [address] Jan, [facility] [address] [id number] [address] [place] [address], [place] [address] Aug, [facility] [address] [id number] [address] [place] [address], [place] [address] Mar, [facility] [address] [id number] [address] [place] [address], [place] [address] Mar, [facility] [address] [id number] [address] [place] [address], [place] [address] Mar, [facility] [address] [id number] [address] [place] [address], [place] [address] 28 Feb, 2012 [facility] [address] [id number] [address] [place] [address], [place] [address] Feb, IMMUNIZATIONS Vaccine Route Administration Date Status FLUARIX QUAD (3 AND UP) 2016 IM Intramuscular Jun 11, 2017 Ad ministered SOCIAL HISTORY Never Assessed REASON FOR VISIT Flu shot PLAN OF CARE VITAL SIGNS MEDICATIONS No Known Medications RESULTS No Results PROCEDURES Procedure Date Ordered Result Body Site FLUARIX QUAD (3 AND UP) 2016Jun 11, 2017 SINGLE IMMUNIZATION ADMIN Jun 11, 2017 INSTRUCTIONS MEDICATIONS ADMINISTERED No Known Medications MEDICAL (GENERAL) HISTORY Type Description Date Medical History seasonal allergies Medical History Transient cerebral ischemia, unspecified type Surgical History cholecystectomy Surgical History tonsillectomy Surgical History x 2 Hospitalization History surgeries Hospitalization History menangitis in middle school Hospitalization History arm injury at 1 Hospitalization History scarlet fever as a child
--- OUTSIDE RECORDS SUMMARY | 2020-01-25 00:04 | XMS REPORT ---
Author Author Ene SAGE [facility] eClinicalWorks Address Unknown Phone Unavailable Care Team Providers Care Bilingual Speech Therapist Name Role Phone NGOZI SAGE CP Unavailable Allergies No Known Allergies Problems Problem Type Condition Code Onset Dates Condition Statu s Problem Acute upper respiratory infections of unspecified site 465.9 Active Problem Ingrowing nail 703.0 Active Problem Cough 786.2 Active Problem Allergic rhinitis, cause unspecified 477.9 Active Assessment Encounter for immunization Z23 A ctive Problem Acute sinusitis, unspecified 461.9 Active Problem Screening for thyroid disorder V77.0 Active Medications No Known Medications Procedures Procedure Coding System Code Date SINGLE IMMUNIZATION ADMIN CPT-4 14860 May FLUARIX QUAD (3 & UP)-GSK-2014 CPT-4 39841 D 2014 Results No Known Results Immunizations Vaccine Administration Date FLUARIX QUAD (3 & UP)-GSK-2014Jun 22, 2015 Summary Purpose eClinicalWorks Submission
--- OUTSIDE RECORDS SUMMARY | 2020-01-25 00:04 | XMS REPORT ---
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 E11.65 Feb, Active [id number] ALLERGIES Substance Reaction Event Type Date Status Sulfamethoxazole-Trimethoprim Unknown Drug Allergy Feb, 6 Active Codeine Unknown Drug Allergy Feb, Active Pineapple and Eggplant Unknown Non Drug Allergy Feb, A ctive Blue 1 dye swelling tongue and face Non Drug Allergy Feb, Active SOCIAL HISTORY No smoking Hx information available PLAN OF CARE VITAL SIGNS Height 63 in 2016-03-08 Weight 242 lbs 2016-03-08 Heart Rate 66 bpm 2016-03-08 Respiratory Rate 20 2016-03-08 BMI 42.86 kg/m2 2016-03-08 Blood pressure systolic 136 mmHg 2016-03-08 Blood pressure diastolic 84 mmHg 2016-03-08 MEDICATIONS Medication Instructions Dosage Frequency Start Date End Date Duration S tatus Naproxen 500 MG Orally every 12 hrs 1 tablet as needed 12h 16 Sep, 2 016 Active Parafon Forte DSC 500 MG Orally 2 times a day 1 tablet 12h 2 7 Sep, 2015 Nov, 30 day(s) Active cetirizine 10 mg take 1 tablet (10 mg) by oral route o nce daily Jan, Active Flonase 50 MCG/ACT Nasally Once a day 1 spray in each nostril 24h Active Omeprazole 20 MG Orally Once a day 1 capsule 24h Active Parafon Forte DSC 500 MG Orally 2 times a day 1 tablet 12h 1 6 Feb, 2016 Aug, 30 day(s) Active Metformin HCl 500 MG Orally Twice a day 1 tablet with meals 12h 30 Active Lisinopril 20 MG TAKE ONE TABLET BY MOUTH ONCE DAILY 30 Active RESULTS Name Result Date Reference Range A1C (IN HOUSE) 2016-03-08 A1C IN HOUSE 5.9 4.3 - 5.6 % Previous A1c 11.6 Lot [id number] Exp date 12/2017 PROCEDURES Procedure Date Ordered Related Diagnosis Body Site GLYCATED HEMOGLOBIN TEST Mar 08, 2016 Office Visit, Est Pt., Level 3 Mar 08, 2016 IMMUNIZATIONS No Known Immunizations
--- OUTSIDE RECORDS SUMMARY | 2020-01-25 00:04 | XMS REPORT ---
Author Author Ene KILPATRICK Organization [facility] Address [address] [place] [address] Care Team Providers Care Post Secondary Professional Name Role Phone BOSTON KILPATRICK Unavailable PROBLEMS Type Condition ICD9-CM Code [id number]-RM Code Onset Dates Condition S tatus SNOMED Code Problem Hypertension, benign I10 Active 56147713 Problem Controlled type 2 diabetes m ellitus without complication, without long- term current use of insulin E11.9 Active 520321004 ALLERGIES No Information ENCOUNTERS Encounter Location Date Diagnosis [place] [address] [address] Mar, [place] [address] [address] Feb, Controlled type 2 diabetes m ellitus without complication, without long-term current use of insulin E11.9 [place] [address] [address] [place] [id number] [place] [address] Dec, Controlled type 2 diabetes m ellitus without complication, without long-term current use of insulin E11.9 and Hypertension, benign I10 [place] [address] [address] [place] [address] October, Controlled type 2 diabetes m ellitus without complication, without long-term current use of insulin E11.9 and Hypertension, benign I10 [facility] [address] [place] [id number] [address] [place] [address] Sep, [facility] [address] [facility] [id number] [address] [place] [id number] Jul, Dental examination Z01.20 [facility] [address] [place] [id number] [address] [place] [address] Jun, [facility] [address] [facility] [id number] [address] [place] [address] May, Encounter for immunization Z 23 [facility] [address] [id number] [address] [place] [id number] Apr, [facility] [address] [id number] [address] [place] [id number] Jan, Dental examination Z01.20 [facility] [address] [id number] [address] [place] [phone] Jan, Dental examination Z01.20 [facility] [address] [id number] [address] [place] [phone] Aug, Controlled type 2 diabetes m stephanieitus without complication, without long-term current use of insulin E11.9 [facility] [address] 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 [id number] [address] [place] [phone] Feb, [facility] [address] [facility] [id number] [address] [place] [phone] Jan, [facility] [address] [facility] [id number] [address] [place] [phone] Nov, Controlled type 2 diabetes m stephanieitus without complication, without long-term current use of insulin E11.9 [facility] [address] [facility] [id number] [address] [place] [address] October, Uncontrolled diabetes [facility] type 2 without complications, unspecified senior living insulin use status E11.65 [facility] [address] [facility] [id number] [address] [place] [address] October, Vision changes H53.9 ; Hyper tension, benign I10 ; Polyuria R35.8 and Polydipsia R63.1 [place] [address] [address] [facility] [id number] [address] [place] [phone] October, Vision changes H53.9 ; Dizzi ness R42 ; Polyuria R35.8 ; Polydipsia R63.1 and Hypertension, benign I10 [facility] [address] [facility] [id number] [address] [place] [address] Sep, Rhinitis, allergic J30.9 ; O ME (otitis media with effusion), bilateral H65.93 ; Bilateral headaches R51 and Dizziness R42 [facility] [address] [facility] [id number] [address] [place] [phone] May, Encounter for immunization Z 23 [facility] [address] [facility] [id number] [place] [phone] Sep, [facility] [address] [facility] [id number] [place] [phone] Sep, [facility] [address] [place] [id number] [place] [phone] Sep, [facility] [address] [facility] [id number] [address] [place] [phone] Sep, [facility] [address] [facility] [id number] [address] [place] [phone] Sep, [facility] [address] [place] [id number] [place] [phone] Sep, [facility] [address] [place] [phone] Sep, [facility] [address] [facility] [id number] [address] [place] [phone] Aug, [facility] [address] [facility] [id number] [address] [place] [phone] Aug, [facility] [address] [place] [id number] [place] [phone] Jan, [facility] [address] [place] [id number] [address] [place] [phone] Aug, [facility] [address] [place] [id number] [place] [phone] Mar, [facility] [address] [facility] [id number] [address] [place] [phone] Mar, [facility] [address] [facility] [id number] [address] [place] [phone] Mar, [facility] [address] [facility] [id number] [address] [place] [phone] Feb, [facility] [address] [facility] [id number] [address] [place] [phone] Feb, IMMUNIZATIONS No Known Immunizations SOCIAL HISTORY Never Assessed REASON FOR VISIT Lab (walk-in) PLAN OF CARE VITAL SIGNS MEDICATIONS Unknown Medications RESULTS No Results PROCEDURES Procedure Date Ordered Result Body Site LIPID PANEL January 15, 2018 COMPREHEN METABOLIC PANEL January 15, 2018 ASSAY THYROID STIM HORMONE January 15, 2018 COMPLETE CBC W/AUTO DIFF WBC January 15, 2018 INSTRUCTIONS MEDICATIONS ADMINISTERED No Known Medications MEDICAL (GENERAL) HISTORY Type Description Date Medical History seasonal allergies Medical History Transient cerebral ischemia, unspecified type Surgical History cholecystectomy Surgical History tonsillectomy Surgical History x 2 Hospitalization History surgeries Hospitalization History menangitis in middle school Hospitalization History arm injury at 1 Hospitalization History scarlet fever as a child
--- OUTSIDE RECORDS SUMMARY | 2020-01-25 00:04 | XMS REPORT ---
Author Author Ene HAM [facility] Address Unknown Care Team Providers Care [employer] Lead Name Role Phone CARMELITA HAM Unavailable PROBLEMS Type Condition ICD9-CM Code [id number] Code Onset Dates Condition S tatus SNOMED Code Problem Hypertension, benign I10 Active [id number] Problem Controlled type 2 diabetes m ellitus without complication, without long- term current use of insulin E11.9 Active [id number] ALLERGIES Substance Reaction Event Type Date Status Sulfamethoxazole-Trimethoprim Unknown Drug Allergy Jul, 8 Active Codeine Unknown Drug Allergy Jul, Active Bactrim anaphylaxis Non Drug Allergy Jul, Active Pineapple and Eggplant Unknown Non Drug Allergy Jul, A ctive Blue 1 dye swelling tongue and face Non Drug Allergy Jul, Active ENCOUNTERS Encounter Location Date Diagnosis [facility] [address] [id number] [address] [place] [phone] October, Controlled type 2 diabetes m ellitus without complication, without long-term current use of insulin E11.9 and Hypertension, benign I10 [facility] [address] [id number] [address] [place] [phone] Sep, [facility] [id number] [place] [phone] Jul, Dental examination Z01.20 [facility] [address] [id number] [address] [place] [phone] Jun, [facility] [address] [facility] [id number] [address] [place] [phone] May, Encounter for immunization Z 23 [facility] [address] [id number] [address] [place] [id number] Apr, [facility] [address] [facility] [id number] [address] [place] [phone] Jan, Dental examination Z01.20 [facility] [address] [facility] [id number] [address] [place] [phone] Jan, Dental examination Z01.20 [facility] [address] [id number] [address] [place] [phone] Aug, Controlled type 2 diabetes m ellitus without complication, without long-term current use of insulin E11.9 [facility] [address] [id number] [address] [place] [phone] Feb, Uncontrolled diabetes [facility] type 2 without complications, 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 [facility] [id number] [place] [phone] Feb, [facility] [address] [phone] Jan, [facility] [address] [phone] Nov, Controlled type 2 diabetes m ellitus without complication, without long-term current use of insulin E11.9 [facility] [address] [id number] [address] [place] [phone] October, Uncontrolled diabetes [facility] type 2 without complications, unspecified usp insulin use status E11.65 [facility] [address] [id number] [address] [place] [phone] October, Vision changes H53.9 ; Hyper tension, benign I10 ; Polyuria R35.8 and Polydipsia R63.1 [facility] [address] [id number] [address] [place] [phone] October, Vision changes H53.9 ; Dizzi ness R42 ; Polyuria R35.8 ; Polydipsia R63.1 and Hypertension, benign I10 [facility] [address] [id number] [address] [place] [phone] Sep, Rhinitis, allergic J30.9 ; O ME (otitis media with effusion), bilateral H65.93 ; Bilateral headaches R51 and Dizziness R42 [facility] [address] [id number] [address] [place] [phone] May, Encounter for immunization Z 23 [facility] [address] [id number] [address] [place] [phone] 14 Sep, 2014 [facility] [address] [id number] [address] [place] [phone] Sep, [facility] [address] [id number] [address] [place] [phone] Sep, [facility] [address] [id number] [address] [place] [phone] Sep, [facility] [address] [id number] [address] [place] [phone] Sep, [facility] [address] [id number] [address] [place] [phone] Sep, [facility] [address] [id number] [address] [place] [phone] Sep, [facility] [address] [id number] [address] [place] [phone] Aug, [facility] [address] [id number] [address] [place] [phone] Aug, [facility] [address] [id number] [address] [place] [phone] Jan, [facility] [address] [id number] [address] [place] [phone] Aug, [facility] [address] [id number] [address] [place] [phone] Mar, [facility] [address] [id number] [address] [place] [phone] Mar, [facility] [address] [id number] [address] [place] [phone] Mar, [facility] [address] [facility] [id number] [address] [address] Feb, [facility] [address] [facility] [id number] [address] [place] [phone] Feb, IMMUNIZATIONS No Known Immunizations SOCIAL HISTORY Never Assessed REASON FOR VISIT CROWN PREP #19 PLAN OF CARE Activity Details Follow Up prn Reason:will call VITAL SIGNS MEDICATIONS Medication Instructions Dosage Frequency Start Date End Date Duration S tatus Lisinopril 20 mg 1 tablet 24h Active Chlorzoxazone 500 MG TAKE ONE TABLET BY MOUTH TWICE DAILY Dec, 30 Active Naproxen 500 MG Orally every 12 hrs 1 tablet as needed 12h 30 Active Omeprazole 20 MG Orally Once a day 1 capsule 24h Not-Taking Parafon Forte DSC Active cetirizine 10 mg take 1 tablet (10 mg) by oral route o nce daily Jan, Active Metformin HCl 500 MG Orally Twice a day 1 tablet with meals 12h 30 Not-Taking Flonase 50 MCG/ACT Nasally Once a day 1 spray in each nostril 24h Not-Taking RESULTS No Results PROCEDURES Procedure Date Ordered Result Body Site INTRAORL-PERIAPICAL 1 FILM 99303 Aug 15, 2017 INTRAORL-PERIAPICAL EA ADD FILM Aug 15, 2017 INSTRUCTIONS MEDICATIONS ADMINISTERED No Known Medications MEDICAL (GENERAL) HISTORY Type Description Date Medical History seasonal allergies Medical History Transient cerebral ischemia, unspecified type Surgical History cholecystectomy Surgical History tonsillectomy Surgical History x 2 Hospitalization History surgeries Hospitalization History menangitis in middle school Hospitalization History arm injury at 1 Hospitalization History scarlet fever as a child
== END 2020-01-24 21:45 | disposition home or self-care (01) ==
LOC: EDUNIT# 20:26 → ER 20:28
DX: H92.02 Otalgia, left ear (principal); R42 Dizziness and giddiness; I10 Essential (primary) hypertension; Z20.828 Contact with and (suspected) exposure to other viral communicable diseases; Z88.2 Allergy status to sulfonamides; Z88.1 Allergy status to other antibiotic agents; Z79.52 Long term (current) use of systemic steroids
CPT/HCPCS: 99283; U0002; 87635

== ENCOUNTER 2023-02-10 09:00 | Emergency (ER) | payer SELFPAY ==
[~2023-02-10 09:00] MED LIST changes: +METH4TAB PO; +ONDA4TAB11 PO; +SCOP1PAT10 TD
[2023-02-10] MEDS ORDERED: RT-ALBUTEROL SULF 2.5 MG/3 ML PRE-MIX VIAL ONE (09:11)
[2023-02-10] MEDS ORDERED: dexAMETHasone INJ 10 MG/ML 1 ML VIAL IV ONE (09:15)
[2023-02-10 09:19] LABS: BASOPHILS % (AUTO) 0 % (0-10); EOSINOPHILS # (AUTO) 0.2 10^3/uL (0.0-0.3); EOSINOPHILS % (AUTO) 2 % (0-10); HEMATOCRIT 41 % (35-52); HEMOGLOBIN 13.8 g/dL (11.5-16.0); LYMPHOCYTES # (AUTO) 3.5 10^3/uL (1.0-4.0); LYMPHOCYTES % (AUTO) 39 % (12-44); MEAN CORPUSCULAR HEMOGLOBIN 27 pg (25-34); MEAN CORPUSCULAR HGB CONC 34 g/dL (32-36); MEAN CORPUSCULAR VOLUME 81 fL (80-99); MEAN PLATELET VOLUME 10.6 fL (9.0-12.2); MONOCYTES # (AUTO) 0.5 10^3/uL (0.0-1.0); MONOCYTES % (AUTO) 6 % (0-12); NEUTROPHILS # (AUTO) 4.7 10^3/uL (1.8-7.8); NEUTROPHILS % (AUTO) 53 % (42-75); PLATELET COUNT 248 10^3/uL (130-400); WHITE BLOOD COUNT 8.9 10^3/uL (4.3-11.0)
[2023-02-10] MEDS ORDERED: diphenhydrAMINE INJ 50 MG/ML VIAL ONE (09:25)
[2023-02-10 09:31] LABS: ALBUMIN 4.4 GM/DL (3.2-4.5); BILIRUBIN,TOTAL 0.4 MG/DL (0.1-1.0); CALCIUM 10.1 MG/DL (8.5-10.1); CREATININE SERUM 0.98 MG/DL (0.60-1.30); POTASSIUM 3.6 MMOL/L (3.6-5.0); TOTAL PROTEIN 7.4 GM/DL (6.4-8.2)
--- NOTE | 2023-02-10 09:50 | ED Respiratory ---
General Chief Complaint: Respiratory Problems Stated Complaint: ASTHMA ATTACK Nursing Triage Note: PT ARRIVED PER EMS W CO OF SOA. PT STOPPED AT FIRESTATION W CO OF ASTHMA ATTACK. PT SAT 100% AND HAS SOME EXP WHEEZING. PT ON RT TX AT THIS X. 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 Apparently she started having some wheezing this morning around 8 AM at work and tried to get home when he became much worse and she stopped at a fire station. Denies recent fever or chills. Has had sore throat for the last 24 hours. Does have allergies. EMS did initiate a DuoNeb and states that she was wheezing pretty good when they got to her but is better now. They did establish IV. She arrives quite anxious but redirectable with upper respiratory sounds. Patient denies nausea, vomiting or diarrhea or other symptoms of illness. She has been vaccinated for COVID and has not had COVID to her knowledge. Does have history of asthma but has never had an attack like this before. Timing/Duration: this morning, getting worse Severity: moderate, severe Prior Episodes/Possible Cause: occasional episodes Modifying Factors: Improves With Albuterol Nebulizer Associated Symptoms: No chest pain/soreness; cough; No fever/chills, No muscle aches, No nasal congestion, No nasal drainage; shortness of breath, sore throat, wheezing Allergies and Home Medications Allergies Coded Allergies: sulfamethoxazole (Verified Allergy, Unknown, 01/24/20) trimethoprim (Verified Allergy, Unknown, 01/24/20) Uncoded Allergies: ENVIROMENTAL (Allergy, Unknown, 02/10/23) Patient Home Medication List Home Medication List Reviewed: Yes Albuterol Sulfate (Ventolin Hfa) 1 Puff Puff, 2 PUFF INH Q4H PRN for COUGH Prescribed by: MACKENZIE MCCLURE on 02/10/23 1012 Methylprednisolone (Medrol) 4 Mg Tab.ds.pk, 4 MG PO UD Prescribed by: NENA TAY on 01/24/202124 Nirmatrelvir/Ritonavir (Paxlovid 300-100 mg Pack (Eua)) 300 Mg (150 Mg X 2)-100 Mg Tab.ds.pk, 1 EACH PO UD Prescribed by: MACKENZIE MCCLURE on 02/10/23 1012 Ondansetron (Ondansetron Odt) 4 Mg Tab.rapdis, 4 MG PO Q4H Prescribed by: NENA TAY on 01/24/202124 Prednisone (Prednisone) 20 Mg Tab, 40 MG PO DAILY Prescribed by: ANT BYNUM on 06/23/131731 Prednisone (Prednisone) 20 Mg Tab, 40 MG PO DAILY Prescribed by: MACKENZIE MCCLURE on 02/10/23 1012 Pseudoephedrine Hcl (Sudafed) 30 Mg Tab, 1 TAB PO TID Prescribed by: ANT BYNUM on 06/23/131731 Scopolamine (Transderm-Scop) 1 Each Patch.td72, 1 EACH TD Q72H Prescribed by: NENA TAY on 01/24/202124 Review of Systems Review of Systems Constitutional: see HPI; No chills, No fever EENTM: throat pain Respiratory: cough, short of breath, wheezing Gastrointestinal: No nausea, No vomiting Genitourinary: no symptoms reported : No Musculoskeletal: No back pain, No muscle pain Skin: No change in color, No lesions Psychiatric/Neurological: Anxiety Hematologic/Lymphatic: No Symptoms Reported Past Htejjxe-Zfuopl-Eyqhoa Hx Patient Social History Tobacco Use?: No Substance use?: No Alcohol Use?: No Pt feels they are or have been: No Immunizations Up To Date First/Initial COVID19 Vaccinat: YES Second COVID19 Vaccination Winston: YES Seasonal Allergies Seasonal Allergies: Yes Past Medical History Surgery/Hospitalization HX: T AND A, GALLBLADDER, ASTHMA, Surgeries: Yes ( X 2) Section, Gallbladder, Tonsillectomy Respiratory: No Cardiac: Yes Hypertension Neurological: No Reproductive Disorders: No Genitourinary: No Gastrointestinal: No Musculoskeletal: No Endocrine: Yes (NO MEDICATIONS FOR DIABETES) Diabetes, Non-Insulin dep HEENT: Yes (Hx ear infections) Tonsilitis Cancer: No Psychosocial: No Integumentary: No Blood Disorders: No Family Medical History Reviewed Nursing Family Hx Physical Exam Vital Signs - First Documented 02/10/23 09:05 Pulse 108 Resp 48 B/P (MAP) 117/98 (104) Pulse Ox 99 Capillary Refill : Height: '" Weight: 260lbs. oz. 117.582862oh; 47.00 BMI Method: General Appearance: WD/WN, no apparent distress HEENT: PERRL/EOMI, pharynx normal Neck: full range of motion, supple Respiratory: respiratory distress, wheezing, expiration, other (Respiratory sounds) Cardiovascular: no murmur, tachycardia Gastrointestinal: non tender, soft Extremities: non-tender, normal inspection Neurologic/Psychiatric: alert, oriented x 3 Skin: normal color, warm/dry Progress/Results/Core Measures Suspected Sepsis SIRS Temperature: Pulse: 108 Respiratory Rate: 48 Laboratory Tests 02/10/23 09:08: White Blood Count 8.9 Blood Pressure 117 /98 Mean: 104 Laboratory Tests 02/10/23 09:08: Creatinine 0.98, Platelet Count 248, Total Bilirubin 0.4 Results/Orders Lab Results Laboratory Tests Test 02/10/23 09:08 02/10/23 09:26 Range/Units White Blood Count 8.9 4.3-11.0 10^3/uL Red Blood Count 5.05 3.80-5.11 10^6/uL Hemoglobin 13.8 11.5-16.0 g/dL Hematocrit 41 35-52 % Mean Corpuscular Volume 81 80-99 fL Mean Corpuscular Hemoglobin 27 25-34 pg Mean Corpuscular Hemoglobin Concent 34 32-36 g/dL Red Cell Distribution Width 13.1 10.0-14.5 % Platelet Count 248 130-400 10^3/uL Mean Platelet Volume 10.6 9.0-12.2 fL Immature Granulocyte % (Auto) 0 % Neutrophils (%) (Auto) 53 42-75 % Lymphocytes (%) (Auto) 39 12-44 % Monocytes (%) (Auto) 6 0-12 % Eosinophils (%) (Auto) 2 0-10 % Basophils (%) (Auto) 0 0-10 % Neutrophils # (Auto) 4.7 1.8-7.8 10^3/uL Lymphocytes # (Auto) 3.5 1.0-4.0 10^3/uL Monocytes # (Auto) 0.5 0.0-1.0 10^3/uL Eosinophils # (Auto) 0.2 0.0-0.3 10^3/uL Basophils # (Auto) 0.0 0.0-0.1 10^3/uL Immature Granulocyte # (Auto) 0.0 0.0-0.1 10^3/uL Sodium Level 138 135-145 MMOL/L Potassium Level 3.6 3.6-5.0 MMOL/L Chloride Level 108 H 98-107 MMOL/L Carbon Dioxide Level 20 L 21-32 MMOL/L Anion Gap 10 5-14 MMOL/L Blood Urea Nitrogen 13 7-18 MG/DL Creatinine 0.98 0.60-1.30 MG/DL Estimat Glomerular Filtration Rate 70 BUN/Creatinine Ratio 13 Glucose Level 232 H 70-105 MG/DL Calcium Level 10.1 8.5-10.1 MG/DL Corrected Calcium 9.8 8.5-10.1 MG/DL Total Bilirubin 0.4 0.1-1.0 MG/DL Aspartate Amino Transf (AST/SGOT) 23 5-34 U/L Alanine Aminotransferase (ALT/SGPT) 42 0-55 U/L Alkaline Phosphatase 91 40-136 U/L C-Reactive Protein High Sensitivity 1.40 H 0.00-0.50 MG/DL Total Protein 7.4 6.4-8.2 GM/DL Albumin 4.4 3.2-4.5 GM/DL SARS-CoV-2 RNA (RT-PCR) Detected H Not Detecte My Orders Orders - MACKENZIE MCCLURE MD Albuterol Pre-Mix Nebs (Rt) (Albuterol (02/10/23 09:11) Cbc With Automated Diff (02/10/23 09:14) Comprehensive Metabolic Panel (02/10/23 09:14) Hs C Reactive Protein (02/10/23 09:14) Chest 1 View, Ap/Pa Only (02/10/23 09:14) Dexamethasone Injection (Dexamethasone (02/10/23 09:15) Covid 19 Inhouse Test (02/10/23 09:14) Diphenhydramine Injection (Diphenhydram (02/10/23 09:25) Medications Given in ED Current Medications Medications Dose Ordered Sig/Shakira Route Start Time Stop Time Status Last Admin Dose Admin Albuterol Sulfate 2.5 mg STK-MED ONCE .ROUTE 02/10/23 09:11 02/10/23 09:12 DC 02/10/23 09:11 2.5 MG Dexamethasone Sodium Phosphate 10 mg ONCE ONCE IV 02/10/23 09:15 02/10/23 09:16 DC 02/10/23 09:21 10 MG Diphenhydramine HCl 50 mg STK-MED ONCE .ROUTE 02/10/23 09:25 02/10/23 09:27 DC 02/10/23 09:30 25 MG Vital Signs/I&O 02/10/23 09:05 Pulse 108 Resp 48 B/P (MAP) 117/98 (104) Pulse Ox 99 Capillary Refill : Blood Pressure Mean: 104 Progress Note : Progress Note Seen and evaluated. IV established by EMS. We will check basic labs including CBC, CMP and CRP and give Decadron 10 mg IV and give albuterol neb. Will evaluate for COVID. Monitor patient. Differential diagnosis includes asthma exacerbation, COVID infection, viral upp er respiratory infection 0957: Chest x-ray reviewed by me shows no acute findings on my interpretation. Patient is COVID-positive. Patient does have elevation of blood sugar on CMP but otherwise grossly normal and CRP is only slightly elevated. 1007 currently she is doing better. We will go ahead and give Toradol 30 mg IV and then discharge her home. Patient is on lisinopril, metformin and hydrochlorothiazide. We will initiate Paxlovid and she does not need to be renal dosed. Discharged home with return precautions. Patient verbalized understanding instructions and agreement with plan. Diagnostic Imaging Diagonstic Imaging: Xray Plain Films/CT/US/NM/MRI: chest Comments [facility] [place] NAME: LOIS BECKER [facility] REC#: [id number] PT STATUS: REG ER : 1975 PHYSICIAN: MACKENZIE MCCLURE MD ADMIT DATE: 02/10/23/ER Draft Date of Exam:02/10/23 CHEST 1 VIEW, AP/PA ONLY Indication: Shortness of air, wheezing. No priors Findings: Lung volumes are symmetric and normal. No bronchiectasis. Lungs clear. No effusion, pneumothorax or pneumomediastinum. Impression: Normal frontal chest x-ray. Dictated on workstation # [id number] Dict: 02/10/23 0951 Trans: 02/10/23 0954 [facility] [id number] Interpreted by: YONATHAN ABDULLAHI Electronically signed by: Departure Impression Primary Impression: COVID-19 virus infection Disposition: 01 HOME, SELF-CARE Condition: Stable Departure-Patient Inst. Decision time for Depature: 10:09 Referrals: [facility] [place] Primary Care Physician Patient Instructions: Nirmatrelvir and Ritonavir FDA Fact Sheet, COVID-19 (DC), Acute Bronchitis, Child (DC) Add. Discharge Instructions: All discharge instructions reviewed with patient and/or family. Voiced understanding. You may take ibuprofen 600 mg every 8 hours as needed for pain. You may also take Tylenol/acetaminophen 1000 mg every 8 hours as needed for pain. Drink plenty of fluids and get plenty of rest. You may use inhaler 2 puffs every 4 hours as needed for shortness of breath. Take other medications as directed. Follow-up with your doctor for recheck and further evaluation next week as needed. Return for worse pain, fever, vomiting, weakness, breathing problems, shortness of breath or difficulty breathing or other concerns as needed. You will need to be out of public for 5 days and may return to public after that but should wear a mask for 5 days. Scripts Albuterol Sulfate (VENTOLIN HFA) 1 Puff Puff 2 PUFF INH Q4H PRN for COUGH, #1 EA 1 Refill 1 PUFF = 90 MCG Prov: MACKENZIE MCCLURE MD 02/10/23 Prednisone (Prednisone) 20 Mg Tab 40 MG PO DAILY, #6 TAB 0 Refills Prov: MACKENZIE MCCLURE MD 02/10/23 Nirmatrelvir/Ritonavir (Paxlovid 300-100 mg Pack (Eua)) 300 Mg (150 Mg X 2)-100 Mg Tab.ds.pk 1 EACH PO UD, #1 PKG 0 Refills Prov: MACKENZIE MCCLURE MD 02/10/23 Copy Copies To 1: NGOZI SAGE TIMOTHY D MD Feb 10, 2023 09:50
--- NOTE | 2023-02-10 09:55 | Diagnostic Imaging Report ---
Indication: Shortness of air, wheezing. No priors Findings: Lung volumes are symmetric and normal. No bronchiectasis. Lungs clear. No effusion, pneumothorax or pneumomediastinum. Impression: Normal frontal chest x-ray. Dictated by: Dictated on workstation # [id number]
[2023-02-10] MEDS ORDERED: NIRM1TAB PO (10:12)
[2023-02-10] MEDS ORDERED: PRD20T PO (10:12)
[2023-02-10] MEDS ORDERED: RT-ALBUINH INH (10:12)
[2023-02-10 10:31] VITALS: BP 124/90
== END 2023-02-10 10:30 | disposition home or self-care (01) ==
LOC: EDUNIT# 09:00 → ER 09:02
DX: U07.1 COVID-19 (principal); R06.2 Wheezing; R06.02 Shortness of breath; R05.9 Cough, unspecified; E11.9 Type 2 diabetes mellitus without complications; Z79.84 Long term (current) use of oral hypoglycemic drugs; Z79.899 Other long term (current) drug therapy
CPT/HCPCS: 36415; 71045; 80053; 85025; 86141; 87636